=== PATIENT | male | born 1955 | race Caucasian/White ===

== ENCOUNTER 2016-07-18 09:15 | Inpatient (IN) | payer MEDICARE, MEDICAID ==
[2016-07-18] MEDS: NS 0.9% 1000 ML* 2,000 ML IV ONE (10:45)
--- NOTE | 2016-07-18 11:01 | RAD ---
INDICATION: Weakness. COMPARISON: Comparison is made with prior chest x-ray studies from June 24, 2014 and July 08, 2015. TECHNIQUE: A portable view of the chest was obtained. FINDINGS: Cardiac and mediastinal contours appear to be within normal limits. The lungs are underinflated. There are small filtrates at both lung bases and a small right upper lobe infiltrate. No pleural effusion is seen. IMPRESSION: SMALL BILATERAL INFILTRATES.
--- NOTE | 2016-07-18 11:02 | RAD ---
INDICATION: Right lower leg injury. TECHNIQUE: 2 views of the right lower leg were obtained. FINDINGS: The bones are normal alignment. No fracture is seen. IMPRESSION: NO EVIDENCE OF FRACTURE.
[2016-07-18 11:03] LABS: Hematocrit 40 % (42-52); Hemoglobin 13.2 g/dl (14.0-18.0); Mean Corpuscular HGB Conc 33 g/dl (31-36); Mean Corpuscular Hemoglobin 32 pg (27-31); Mean Corpuscular Volume 98 fL (80-94); Mean Platelet Volume 9 um3 (7.4-10.4); Red Blood Count 4.08 10^6/ul (4.0-5.4); Red Cell Distribution Width 13 % (10.5-15); White Blood Count 12.4 10^3/ul (3.5-10.8)
[2016-07-18 11:18] LABS: Troponin I 0.03 ng/mL (<0.04)
[2016-07-18 11:19] LABS: Albumin 3.2 g/dL (3.2-5.2); BUN/Creatinine Ratio 21.4 (8-20); C Reactive Protein 19.54 mg/L (< 5.00); Calcium 8.5 mg/dL (8.6-10.3); EGFR African American 95.1 (>60); EGFR Non-African American 73.9 (>60); Globulin 3.6 g/dL (2-4); Magnesium 1.9 mg/dL (1.9-2.7); Potassium 3.9 mmol/L (3.5-5.0); Total Bilirubin 0.6 mg/dL (0.2-1.0); Total Protein 6.8 g/dL (6.4-8.9)
[2016-07-18 11:36] LABS: TSH (Thyroid Stimulating Horm) 1.77 mcIU/mL (0.34-5.60)
[2016-07-18] MEDS ORDERED: Iohexol 300* (CONTRAST) 10 ML SDV IV ONE (11:40)
--- NOTE | 2016-07-18 12:46 | RAD ---
HISTORY: Trauma COMPARISONS: July 21, 2015 TECHNIQUE: Multiple contiguous axial CT scans were obtained of the head without intravenous contrast. FINDINGS: HEMORRHAGE/INFARCT: There is no hemorrhage or acute infarct. MASSES/SHIFT: There is no mass or shift. EXTRA-AXIAL SPACES: There are no extra-axial fluid collections. SULCI AND VENTRICLES: The sulci and ventricles are normal in size and position for the patient's stated age. CEREBRUM: There are no focal parenchymal abnormalities. BRAINSTEM: There are no focal parenchymal abnormalities. CEREBELLUM: There are no focal parenchymal abnormalities. VESSELS: The vessels are grossly normal. PARANASAL SINUSES: There is mucosal thickening of ethmoid air cells and sphenoid sinus. The sphenoid sinus is hypoplastic. ORBITS: The orbits are unremarkable. BONES AND SOFT TISSUE: No bone or soft tissue abnormalities are noted. OTHER: None IMPRESSION: NO ACUTE INTRACRANIAL PATHOLOGY.
--- NOTE | 2016-07-18 12:53 | RAD ---
HISTORY: Trauma, history of Down syndrome right foot and arm pain COMPARISONS: None TECHNIQUE: Multiple contiguous axial CT scans were obtained of the cervical spine without intravenous contrast, with coronal and sagittal multiplanar reformations. FINDINGS: BRAIN: The visualized brain is unremarkable CENTRAL CANAL: Evaluation of the central canal is limited on CT technique; however, there is no obvious canalicular mass or epidural hemorrhage. ALIGNMENT: There is a scoliotic curvature of the spine. There is grade 1 anterolisthesis of C6 on C7 and C5 on C6. VERTEBRAL BODIES: There is multilevel anterolateral marginal osteophyte formation. There is no displaced fracture or dislocation. JOINTS: There is fusion across C3-C4 MUSCULATURE: Unremarkable INTERVERTEBRAL DISCS: There is diffuse loss of intervertebral disc height. There is partial fusion across C2-C3. There is fusion across C3-C4. AXIAL IMAGES: C2-C3: There is no osseous neural foraminal narrowing or central canal stenosis. C3-C4: There is bilateral uncovertebral facet hypertrophy with moderate bilateral neural foraminal narrowing. C4-C5: There is no osseous neural foraminal narrowing or central canal stenosis. C5-C6: There is no osseous neural foraminal narrowing or central canal stenosis. C6-C7: There is bilateral facet hypertrophy. There is severe right neural foraminal narrowing. There is no osseous central canal stenosis C7-T1: There is no osseous neural foraminal narrowing or central canal stenosis. SOFT TISSUES: The visualized soft tissues of the neck are unremarkable. The prevertebral fat stripe is preserved. OTHER: None. IMPRESSION: 1. DEGENERATIVE DISC DISEASE AND OSTEOARTHRITIS. 2. THERE IS MULTILEVEL NEURAL FORAMINAL NARROWING DESCRIBED ABOVE. 3. THERE IS NO OSSEOUS CENTRAL CANAL STENOSIS
--- NOTE | 2016-07-18 12:58 | RAD ---
INDICATION: Abdominal pain and weakness. COMPARISON: There are no prior studies available for comparison. TECHNIQUE: A CT scan of the abdomen and pelvis was performed with intravenous and without oral contrast following intravenous injection of 85 ml of Omnipaque 300 nonionic contrast. Contiguous axial sections were obtained from the lung bases through the symphysis pubis. Images were reconstructed in the coronal and sagittal planes. The exam is limited due to motion artifact. FINDINGS: There are small patchy infiltrates present at both lung bases involving the left upper lobe and both lower lobes. No pleural effusion is present. The liver and spleen are normal in size without focal abnormality. No calcified gallstones are seen. No intra or extra hepatic ductal distention is present. Evaluation of the pancreas is limited due to motion artifact. No focal abnormality is seen. The kidneys and adrenal glands are normal in size. No hydronephrosis is seen. There is a 4.2 cm simple cyst arising from the lower pole of the left kidney. There is diffuse thickening of the wall of the urinary bladder. The prostate gland does not appear enlarged. The aorta is normal in caliber and demonstrates homogeneous contrast opacification. No significant enlarged retroperitoneal lymph nodes are seen. The stomach, small and large bowel appear nondistended. The appendix is not visualized. There is no evidence for colitis or diverticulitis. No free intraperitoneal air or fluid is seen. No significant focal osseous abnormality is seen. IMPRESSION: 1. LIMITED STUDY DUE TO MOTION ARTIFACT. 2. BIBASILAR INFILTRATES SUSPICIOUS FOR PNEUMONIA. 3. DIFFUSE THICKENING OF THE WALL OF THE URINARY BLADDER SUGGESTING THE POSSIBILITY OF CYSTITIS. RECOMMEND CLINICAL CORRELATION.
[2016-07-18] MEDS ORDERED: cefTRIAXone(*) 1 GM in NS 0.9% 50 ML* 50 ML IVPB ONE (13:39)
[2016-07-18] MEDS ORDERED: NS 0.9% 1000 ML* 2,000 ML IV ONE (13:39)
[2016-07-18] MEDS ORDERED: Azithromycin IV(*) 500 MG in NS 0.9% 250 ML* 250 ML IVPB ONE (13:40)
[2016-07-18 14:25] LABS: Urine Bilirubin Negative (Negative); Urine Glucose Negative (Negative); Urine Nitrite Negative (Negative)
[2016-07-18] MEDS ORDERED: Albuterol HFA INHALER* 8 gm MDI INH PRN (14:56)
[2016-07-18] MEDS ORDERED: Ibuprofen TAB* 400 MG PO PRN (14:56)
[2016-07-18] MEDS: NS 0.9% 1000 ML* 1,000 ML IV SCH (16:58)
[2016-07-18] MEDS: Heparin VIAL(*) 5000 UNITS/ML VIAL (FIVE THOUSAND) SUBCUT SCH (21:51)
--- NOTE | 2016-07-18 23:15 | HP ---
HISTORY AND PHYSICAL: DATE OF ADMISSION: 07/18/16 PRIMARY CARE PROVIDER: Unknown at this time. CHIEF COMPLAINT: "He is falling a lot." HISTORY OF PRESENT ILLNESS: The patient is a poor historian and is alone in the emergency room at this time. So, most of the history is obtained from his chart. Mr. Keenan is a 61-year-old with past medical history of Down syndrome, intellectual disability, depression, mild hearing loss who was diagnosed with influenza as outpatient last week. As per records, he completed his treatment, but continued to have dyspnea and cough and has had unwitnessed falls at [facility] and also complained of weakness. The patient denies pain at this time. PAST MEDICAL HISTORY: 1. Down syndrome. 2. Intellectual disability. 3. Depression. 4. Mild hearing loss. 5. BPH. MEDICATIONS: 1. Acetaminophen 650 mg p.o. q.4 hours p.r.n. pain or fever. 2. Albuterol sulfate 2 puffs inhaled q.4 hours p.r.n. shortness of breath or wheezing. 3. Pepto-Bismol 15 mL p.o. q.4 hours p.r.n. nausea and vomiting. 4. Fluticasone nasal spray 50 mcg 2 sprays to both nares daily. 5. Guaifenesin DM 10 mL p.o. 4 times a day as needed for cough. 6. Ibuprofen 400 mg p.o. q.8 hours p.r.n. pain. 7. Loratadine 10 mg p.o. daily. 8. Meloxicam 7.5 mg p.o. daily with meals as needed for pain. 9. Multivitamin 1 tablet p.o. daily. 10. Natural Dentist Healthy 8 to 10 mL swish and spit b.i.d. 11. PreviDent 5000 plus 1.1% b.i.d. 12. Tamsulosin 0.4 mg p.o. daily. ALLERGIES: No known drug allergies. FAMILY HISTORY: Unable to obtain from the patient. SOCIAL HISTORY: Unable to obtain from the patient, but he resides at [facility] and documented surrogate decision maker is Kayleen Plaza, phone number is [phone]. REVIEW OF SYSTEMS: A 14-point review of systems was performed and all pertinent negative and positives findings are in the HPI. PHYSICAL EXAMINATION GENERAL: The patient is a middle aged male, lying in bed, in no acute distress with characteristic Down faces. VITAL SIGNS: Temperature 98.3, heart rate is 76, respiratory rate is 14, oxygen saturation 96% on room air, blood pressure 127/78. HEENT: Pupils are equal. Moist mucous membranes. CHEST: Breath sounds present bilaterally, coarse, but no added sounds. CVS: Normal S1, S2. Regular rate and rhythm. ABDOMEN: Soft, nontender, nondistended. Bowel sounds are present. EXTREMITIES: No edema. NEUROLOGIC: He is alert and oriented x3. Able to move all 4 extremities. LABORATORY AND IMAGING DATA: The patient had a CBC that showed WBC of 12.4, hemoglobin 13.2, hematocrit of 40, platelets of 138. He has 91% neutrophils. Chemistry showed a sodium of 142, potassium 3.9, chloride of 107, bicarb of 19, anion gap of 16, BUN of 22, creatinine of 1.03, glucose of 130, lactic acid of 1.5, calcium of 8.5, magnesium of 1.9. LFTs are normal. Troponin is 0.03. CRP is 19.5. TSH is 1.7. Urinalysis was negative. EKG done on 07/18/16 at 09:57 showed sinus rhythm at 75 beats per minute with no ST- T changes. No significant change from prior EKG from June 2015. Chest x-ray showed small bilateral infiltrates. CT of the abdomen and pelvis with IV contrast was a limited study due to motion artifact with bibasilar infiltrates suspicious for pneumonia. There is diffuse thickening of the wall of the urinary bladder suggesting the possibility of cystitis. CT of the brain showed no acute intracranial pathology. CT of the cervical spine showed degenerative disk disease and osteoarthritis with multilevel neuroforaminal narrowing, but no osseous central canal stenosis. Left leg x-ray showed no evidence of fracture. ASSESSMENT AND PLAN: Mr. Keenan is a 61-year-old male with past medical history of Down syndrome, depression, intellectual disability, and mild hearing loss who was recently diagnosed with flu as outpatient and completed with treatment, but now presents with complaints of shortness of breath and weakness and found to have pneumonia. 1. Pneumonia. We are going to check blood cultures, Legionella and pneumococcal antigen. The patient was already started on ceftriaxone and Zithromax. 2. Deconditioning. We are going to request PT and OT consultations. 3. Benign prostatic hypertrophy. We will continue tamsulosin. 4. DVT prophylaxis . The patient has a score of 2 on the DVT Prophylaxis Risk Assessment Guide and he will be started on subcutaneous heparin. 5. Code status is full. TIME SPENT: Approximately 40 minutes were spent with the patient interview, medical records review, physical examination to complete this admission, and more than half of this time was spent [id number] with the patient in coordination of care. [id number]/[facility] #: [id number] FLO
[2016-07-18] MEDS: Acetaminophen TAB* 325 MG PO PRN (23:53)
[2016-07-19] MEDS: NS 0.9% 1000 ML* 1,000 ML IV SCH ×2 (03:02→14:15)
[2016-07-19] MEDS: GuaiFENesin DM* 5 ML UDC PO PRN (04:10)
[2016-07-19] MEDS: Heparin VIAL(*) 5000 UNITS/ML VIAL (FIVE THOUSAND) SUBCUT SCH ×3 (06:00→21:00)
[2016-07-19 07:21] LABS: Hematocrit 37 % (42-52); Hemoglobin 12.3 g/dl (14.0-18.0); Mean Corpuscular HGB Conc 33 g/dl (31-36); Mean Corpuscular Hemoglobin 32 pg (27-31); Mean Corpuscular Volume 98 fL (80-94); Mean Platelet Volume 9 um3 (7.4-10.4); Red Cell Distribution Width 14 % (10.5-15); White Blood Count 13.1 10^3/ul (3.5-10.8)
[2016-07-19 07:43] LABS: C Reactive Protein 102.84 mg/L (< 5.00); EGFR Non-African American 103.4 (>60); Potassium 3.3 mmol/L (3.5-5.0)
[2016-07-19] MEDS: Oseltamivir CAP* 75 MG PO SCH ×2 (08:40→20:55)
[2016-07-19] MEDS: Tamsulosin CAP* 0.4 MG PO SCH (08:41)
[2016-07-19] MEDS: Fluticasone NASAL SPRAY 50MCG* 16 gm SPRAY BTL BOTH NARES SCH (08:41)
[2016-07-19] MEDS: Prenatal Vitamin TAB PO SCH (08:41)
--- NOTE | 2016-07-19 10:56 | PN ---
Subjective Date of Service: 07/19/16 Interval History: HOSPITALIST PROGRESS NOTE Patient seen and examined at bedside. He offers no complaints at this time. Family History: Unchanged from Admission Social History: Unchanged from Admission Past Medical History: Unchanged from Admission Objective Active Medications: Acetaminophen (Tylenol Tab*) 650 mg PO Q4H PRN PRN Reason: FEVER/PAIN Last Admin: 07/18/16 23:53 Dose: 650 mg Albuterol (Ventolin Hfa Inhaler*) 2 puff INH Q4HR PRN PRN Reason: Cough/Wheezing/Dyspnea Fluticasone Propionate (Flonase Nasal [place] 50mcg*) 2 spray BOTH NARES DAILY [facility] Last Admin: 07/19/16 08:41 Dose: 2 spray Guaifenesin/Dextromethorphan (Robitussin Dm*) 10 ml PO QID PRN PRN Reason: COUGH Last Admin: 07/19/16 04:10 Dose: 10 ml Heparin Sodium (Porcine) (Heparin Vial(*)) 5,000 units SUBCUT Q8HR [facility] Last Admin: 07/19/16 06:00 Dose: 5,000 units Ceftriaxone Sodium 1,000 mg/ (Sodium Chloride) 50 mls @ 200 mls/hr IVPB Q24H [facility] Azithromycin 500 mg/ Sodium (Chloride) 250 mls @ 250 mls/hr IVPB Q24H [facility] Sodium Chloride (Ns 0.9% 1000 Ml*) 1,000 mls @ 100 mls/hr IV PER RATE [facility] Last Admin: 07/19/16 03:02 Dose: 100 mls/hr Ibuprofen (Motrin Tab*) 400 mg PO Q8H PRN PRN Reason: PAIN/INFLAMMATION Multivitamins ( Vitamin Tab*) 1 tab PO DAILY [facility] Last Admin: 07/19/16 08:41 Dose: 1 tab Oseltamivir Phosphate (Tamiflu Cap*) 75 mg PO BID [facility]OIE Stop: 07/23/16 21:01 Last Admin: 07/19/16 08:40 Dose: 75 mg Potassium Chloride (Klor Con Er Tab*) 20 meq PO BID [facility] Tamsulosin HCl (Flomax Cap*) 0.4 mg PO DAILY [facility] Last Admin: 07/19/16 08:41 Dose: 0.4 mg Vital Signs 07/18/16 07/18/16 07/18/16 14:35 15:17 19:05 Temperature 98.6 F 99.0 F Pulse Rate 90 68 Respiratory 20 20 20 Rate Blood Pressure 126/69 122/66 (mmHg) O2 Sat by Pulse 96 93 Oximetry 07/18/16 07/19/16 20:00 03:59 Temperature 98.5 F Pulse Rate 66 Respiratory 16 19 Rate Blood Pressure 120/61 (mmHg) O2 Sat by Pulse 96 Oximetry Oxygen Devices in Use Now: None Appearance: Middle aged male sitting up in bed in NAD. Eyes: No Scleral Icterus Ears/Nose/Mouth/Throat: Mucous Membranes Moist Neck: Trachea Midline Respiratory: Symmetrical Chest Expansion and Respiratory Effort, - - BS+ bilaterally with scattered rhonchi Cardiovascular: RRR - Normal S1 and S2 Abdominal: NL Sounds; No Tenderness; No Distention Neurological: - - AAOx2 (self and place), HARDING Lines/Tubes/Other Access: Clean, Dry and Intact Peripheral IV Nutrition: Taking PO's Result Diagrams: 07/19/16 06:26 07/19/16 06:26 Assess/Plan/Problems-Billing Assessment: Mr. Keenan is a 61yo M with PMH of Down syndrome, intellectual disability, depression, mild hearing loss, BPH, recent diagnosis of Influenza, who presented to ED with weakness, falls, found to have pneumonia. - Patient Problems (1) Pneumococcal pneumonia Comment: - Pneumococcal Ag positive. - Continue Ceftriaxone and Zithromax. (2) Influenza B Comment: - As per aide, he finished treatment last week, but still testing positive. - Resume Tamiflu. - Will d/w ID. (3) DVT prophylaxis Comment: - SQ heparin. (4) Full code status Status and Disposition: Inpatient.
[2016-07-19] MEDS: Potassium Chlor TAB* 20 MEQ TAB.ER PO SCH ×2 (11:15→20:55)
[2016-07-19] MEDS: cefTRIAXone VIAL(*) 1,000 MG in NS 0.9% 50 ML* 50 ML IVPB SCH (13:31)
[2016-07-19] MEDS: Azithromycin IV(*) 500 MG in NS 0.9% 250 ML* 250 ML IVPB SCH (15:17)
[2016-07-19] MEDS: Acetaminophen TAB* 325 MG PO PRN (21:11)
[2016-07-20] MEDS: NS 0.9% 1000 ML* 1,000 ML IV SCH ×2 (01:05→18:19)
[2016-07-20] MEDS: Heparin VIAL(*) 5000 UNITS/ML VIAL (FIVE THOUSAND) SUBCUT SCH ×3 (06:34→22:43)
[2016-07-20] MEDS: Potassium Chlor TAB* 20 MEQ TAB.ER PO SCH ×2 (10:31→20:28)
[2016-07-20] MEDS: Prenatal Vitamin TAB PO SCH (10:31)
[2016-07-20] MEDS: Tamsulosin CAP* 0.4 MG PO SCH (10:31)
[2016-07-20] MEDS: Oseltamivir CAP* 75 MG PO SCH ×2 (10:32→20:28)
[2016-07-20] MEDS: Fluticasone NASAL SPRAY 50MCG* 16 gm SPRAY BTL BOTH NARES SCH (10:32)
--- NOTE | 2016-07-20 10:33 | PN ---
Subjective Date of Service: 07/20/16 Interval History: HOSPITALIST PROGRESS NOTE Patient seen and examined at bedside. He offers no complaints at this time. Frequent coughing during my examination. Family History: Unchanged from Admission Social History: Unchanged from Admission Past Medical History: Unchanged from Admission Objective Active Medications: Acetaminophen (Tylenol Tab*) 650 mg PO Q4H PRN PRN Reason: FEVER/PAIN Last Admin: 07/19/16 21:11 Dose: 650 mg Albuterol (Ventolin Hfa Inhaler*) 2 puff INH Q4HR PRN PRN Reason: Cough/Wheezing/Dyspnea Fluticasone Propionate (Flonase Nasal [place] 50mcg*) 2 spray BOTH NARES DAILY [facility] Last Admin: 07/19/16 08:41 Dose: 2 spray Guaifenesin/Dextromethorphan (Robitussin Dm*) 10 ml PO QID PRN PRN Reason: COUGH Last Admin: 07/19/16 04:10 Dose: 10 ml Heparin Sodium (Porcine) (Heparin Vial(*)) 5,000 units SUBCUT Q8HR [facility] Last Admin: 07/20/16 06:34 Dose: 5,000 units Ceftriaxone Sodium 1,000 mg/ (Sodium Chloride) 50 mls @ 200 mls/hr IVPB Q24H [facility] Last Admin: 07/19/16 13:31 Dose: 200 mls/hr Azithromycin 500 mg/ Sodium (Chloride) 250 mls @ 250 mls/hr IVPB Q24H [facility] Last Admin: 07/19/16 15:17 Dose: 250 mls/hr Sodium Chloride (Ns 0.9% 1000 Ml*) 1,000 mls @ 100 mls/hr IV PER RATE [facility] Last Admin: 07/20/16 01:05 Dose: 100 mls/hr Ibuprofen (Motrin Tab*) 400 mg PO Q8H PRN PRN Reason: PAIN/INFLAMMATION Multivitamins ( Vitamin Tab*) 1 tab PO DAILY [facility] Last Admin: 07/19/16 08:41 Dose: 1 tab Oseltamivir Phosphate (Tamiflu Cap*) 75 mg PO BID [facility] Stop: 07/23/16 21:01 Last Admin: 07/19/16 20:55 Dose: 75 mg Potassium Chloride (Klor Con Er Tab*) 20 meq PO BID [facility] Last Admin: 07/19/16 20:55 Dose: 20 meq Tamsulosin HCl (Flomax Cap*) 0.4 mg PO DAILY [facility] Last Admin: 07/19/16 08:41 Dose: 0.4 mg Vital Signs 07/19/16 07/20/16 07/20/16 23:39 07:10 08:00 Temperature 99.8 F 99.2 F Pulse Rate 61 66 Respiratory 16 22 22 Rate Blood Pressure 110/55 126/71 (mmHg) O2 Sat by Pulse 94 92 Oximetry 07/20/16 08:44 Temperature 100.1 F Pulse Rate 62 Respiratory Rate Blood Pressure 118/68 (mmHg) O2 Sat by Pulse Oximetry Oxygen Devices in Use Now: None Appearance: Pleasant middle aged male sitting up in bed in NAD. Eyes: No Scleral Icterus Ears/Nose/Mouth/Throat: Mucous Membranes Moist Neck: Trachea Midline Respiratory: Symmetrical Chest Expansion and Respiratory Effort, - - BS+ bilaterally with scattered rhonchi Cardiovascular: RRR - Normal S1 and S2 Abdominal: NL Sounds; No Tenderness; No Distention Extremities: No Edema Neurological: - - AAOx2 (self and place), HARDING Lines/Tubes/Other Access: Clean, Dry and Intact Peripheral IV Nutrition: Taking PO's Result Diagrams: 07/19/16 06:26 07/19/16 06:26 Assess/Plan/Problems-Billing Assessment: Mr. Keenan is a 61yo M with PMH of Down syndrome, intellectual disability, depression, mild hearing loss, BPH, recent diagnosis of Influenza, who presented to ED with weakness, falls, found to have pneumonia. - Patient Problems (1) Pneumococcal pneumonia Comment: - Pneumococcal Ag positive. - Continue Ceftriaxone and Zithromax. (2) Influenza B Comment: - As per aide, he finished treatment last week, but still testing positive. - Resume Tamiflu. - d/w ID - this may represent only virus since this is a PCR test, but as patient lives at [facility] with other residents, will continue Tamiflu. (3) DVT prophylaxis Comment: - SQ heparin. (4) Full code status Status and Disposition: Inpatient.
[2016-07-20] MEDS: cefTRIAXone VIAL(*) 1,000 MG in NS 0.9% 50 ML* 50 ML IVPB SCH (14:17)
[2016-07-20] MEDS: Azithromycin IV(*) 500 MG in NS 0.9% 250 ML* 250 ML IVPB SCH (15:29)
[2016-07-20] MEDS: GuaiFENesin DM* 5 ML UDC PO PRN (20:28)
[2016-07-20] MEDS: Acetaminophen TAB* 325 MG PO PRN (20:29)
--- NOTE | 2016-07-21 01:01 | ED ---
Jamison Goldstein Matthew, scribed for Anurag Grove MD on 07/18/16 at 1007 . Adult Trauma - HPI Summary HPI Summary: A 61 y/o male presents to the ED after a mechanical fall at 05:30 this morning. Associated symptoms include right foot pain, and head trauma. According to the staff member presenting with the patient, he was also grabbing his abdomen this morning. The patient has a Hx of downs syndrome and is a resident of [facility]. A staff member states that he almost fell down the stairs again this morning before being caught by the staff. They are worried about his increased frequency of falls. The patient was recently Dx with influenza and just finished his medication. A complete PHI is limited, because of the patient's Hx of down syndrome. - History of Current Complaint Chief Complaint: EDGeneral Stated Complaint: SOB Time Seen by Provider: 07/18/16 09:43 Hx Obtained From: Patient, Family/Part Time Receptionist Mechanism of Injury: Fall Ambulatory at the Scene: Yes Loss of Consciousness: unsure Onset/Duration: Traumatic, Still Present Onset of Pain: Immediate Onset Severity: Mild Current Severity: Mild Pain Intensity: 3 Pain Scale Used: 0-10 Numeric Location: Head, Extremities - RT Foot Associated Signs & Symptoms: Positive: Abdominal Pain - Allergy/Home Medications Allergies/Adverse Reactions: Allergies Allergy/AdvReac Type Severity Reaction Status Date / Time No Known Drug Allergy Allergy Unknown Verified 07/18/16 15:18 Reaction Details environmental Allergy Eyes Uncoded 05/15/15 12:23 Itchy/Swollen/Red/Watery Home Medications: Home Medications Acetaminophen TAB* [Tylenol TAB*] 650 mg PO Q4H PRN 07/18/16 [History Confirmed 07/18/16] Albuterol Sulfate [Proair Respiclick] 2 puff INH Q4HR PRN 07/18/16 [History Confirmed 07/18/16] Bismuth Subsalicylate [Pepto-Bismol Max Strength] 15 ml PO Q4HR PRN 07/18/16 [ History Confirmed 07/18/16] Fluticasone NASAL SPRAY 50MCG* [Flonase NASAL SPRAY 50MCG*] 2 spray BOTH NARES DAILY 07/18/16 [History Confirmed 07/18/16] GuaiFENesin DM* [Robitussin DM*] 10 ml PO QID PRN 07/18/16 [History Confirmed ] Ibuprofen TAB* [Advil TAB*] 400 mg PO Q8H PRN 07/18/16 [History Confirmed ] LoraTADine TAB(NF) [Claritin 10 MG TAB(NF)] 10 mg PO DAILY 07/18/16 [History Confirmed 07/18/16] Meloxicam(NF) [Mobic(NF)] 7.5 mg PO DAILY WITH MEAL PRN 07/18/16 [History Confirmed 07/18/16] Multiple Vitamin [Daily Multiple Vitamin] 1 tab PO DAILY 07/18/16 [History Confirmed 07/18/16] Natural Dentist Healthy 10 ml SWISH SPIT BID 07/18/16 [History Confirmed ] Sodium Fluoride (Dental) [Prevident 5000 Plus] 1.1 % PO BID 07/18/16 [History Confirmed 07/18/16] Tamsulosin CAP* [Flomax CAP*] 0.4 mg PO DAILY 07/18/16 [History Confirmed ] PMH/Surg Hx/FS Hx/Imm Hx Endocrine/Hematology History: Denies: Hx Diabetes, Hx Thyroid Disease Cardiovascular History: Denies: Hx Hypertension Respiratory History: Denies: Hx Asthma, Hx Chronic Obstructive Pulmonary Disease (COPD) GI History: Denies: Hx Ulcer Psychiatric History: Reports: Hx Depression Infectious Disease History: No Infectious Disease History: Denies: Hx Hepatitis, Hx Human Immunodeficiency Virus (HIV), Traveled Outside the [place] in Last 30 Days - Family History Known Family History: Positive: Unknown - The patient is a poor historian due to down syndrome - Social History Alcohol Use: None Substance Use Type: Reports: None Smoking Status (MU): Never Smoked Tobacco Review of Systems Positive: Abdominal Pain Positive: Myalgia - RT Foot Pain All Other Systems Reviewed And Are Negative: No - Comments Additional Review of Systems Comments: A complete ROS is unable to be obtained as the patient is a poor history from his Hx of down syndrome. Physical Exam Triage Information Reviewed: Yes Vital Signs On Initial Exam: Initial Vitals Temp Pulse Resp BP Pulse Ox 98.3 F 77 16 103/75 97 07/18/16 09:31 07/18/16 09:31 07/18/16 09:31 07/18/16 09:31 07/18/16 09:31 Vital Signs Reviewed: Yes Appearance: Positive: Well-Appearing, No Pain Distress Skin: Positive: Warm, Dry Head/Face: Positive: Normal Head/Face Inspection Eyes: Positive: EOMI, SAMIR ENT: Positive: Other - oral mucosa dry Neck: Positive: Supple, Nontender Respiratory/Lung Sounds: Positive: Clear to Auscultation, Breath Sounds Present Cardiovascular: Positive: RRR Abdomen Description: Positive: Soft, Other: - mild tenderness diffusely over the abdomen Bowel Sounds: Positive: Present Musculoskeletal: Positive: Strength/ROM Intact, Other - The patient indicates that his right proximal tib/fib hurt at some time Psychiatric: Positive: Other - Hx of MR - Bruno Coma Scale Coma Scale Total: 15 Diagnostics - Vital Signs Vital Signs Temp Pulse Resp BP Pulse Ox 07/18/16 09:31 98.3 F 77 16 103/75 97 - Laboratory Result Diagrams: 07/18/16 10:39 07/18/16 10:39 Lab Statement: Any lab studies that have been ordered have been reviewed, and results considered in the medical decision making process. - Radiology CXR Xray Interpretation: Positive (See Comments) - IMPRESSION: SMALL BILATERAL INFILTRATES. Radiology Interpretation Completed By: Radiologist LE XR Xray Interpretation: No Acute Changes - IMPRESSION: NO EVIDENCE OF FRACTURE. Radiology Interpretation Completed By: Radiologist - CT Brain CT CT Interpretation: No Acute Changes - IMPRESSION: NO ACUTE INTRACRANIAL PATHOLOGY. CT Interpretation Completed By: Radiologist C-Spine CT CT Interpretation: Positive (See Comments) - IMPRESSION: 1. DEGENERATIVE DISC DISEASE AND OSTEOARTHRITIS. 2. THERE IS MULTILEVEL NEURAL FORAMINAL NARROWING DESCRIBED ABOVE. 3. THERE IS NO OSSEOUS CENTRAL CANAL STENOSIS CT Interpretation Completed By: Radiologist A/P CT CT Interpretation: Positive (See Comments) - IMPRESSION: 1. LIMITED STUDY DUE TO MOTION ARTIFACT. 2. BIBASILAR INFILTRATES SUSPICIOUS FOR PNEUMONIA. 3. DIFFUSE THICKENING OF THE WALL OF THE URINARY BLADDER SUGGESTING THE POSSIBILITY OF CYSTITIS. RECOMMEND CLINICAL CORRELATION. CT Interpretation Completed By: Radiologist - EKG 09:57 Cardiac Rate: NL - 75 bpm EKG Rhythm: Sinus Rhythm Ectopy: None Adult Trauma Course/Dx - Diagnoses Provider Diagnoses: PNEUMONIA Discharge - Discharge Plan Condition: Fair Disposition: ADMITTED TO [facility] [place] documentation as recorded by the Jamison yousif Matthew accurately reflects the service I personally performed and the decisions made by me, Anurag Grove MD.
[2016-07-21] MEDS: NS 0.9% 1000 ML* 1,000 ML IV SCH (03:31)
[2016-07-21] MEDS: Heparin VIAL(*) 5000 UNITS/ML VIAL (FIVE THOUSAND) SUBCUT SCH ×3 (05:38→22:29)
[2016-07-21 05:43] LABS: Hematocrit 33 % (42-52); Hemoglobin 11.2 g/dl (14.0-18.0); Mean Corpuscular HGB Conc 34 g/dl (31-36); Mean Corpuscular Hemoglobin 33 pg (27-31); Mean Corpuscular Volume 96 fL (80-94); Mean Platelet Volume 9 um3 (7.4-10.4); Red Blood Count 3.43 10^6/ul (4.0-5.4); Red Cell Distribution Width 13 % (10.5-15); White Blood Count 6.1 10^3/ul (3.5-10.8)
[2016-07-21 05:54] LABS: BUN/Creatinine Ratio 7.8 (8-20); Calcium 7.9 mg/dL (8.6-10.3); EGFR African American 164.6 (>60); Potassium 3.5 mmol/L (3.5-5.0)
--- NOTE | 2016-07-21 10:37 | PN ---
Subjective Date of Service: 07/21/16 Interval History: HOSPITALIST PROGRESS NOTE Patient seen and examined at bedside. Offers no complaints. Family History: Unchanged from Admission Social History: Unchanged from Admission Past Medical History: Unchanged from Admission Objective Active Medications: Acetaminophen (Tylenol Tab*) 650 mg PO Q4H PRN PRN Reason: FEVER/PAIN Last Admin: 07/20/16 20:29 Dose: 650 mg Albuterol (Ventolin Hfa Inhaler*) 2 puff INH Q4HR PRN PRN Reason: Cough/Wheezing/Dyspnea Fluticasone Propionate (Flonase Nasal [place] 50mcg*) 2 spray BOTH NARES DAILY COUNT INCLUDES [facility] Last Admin: 07/20/16 10:32 Dose: 2 spray Guaifenesin/Dextromethorphan (Robitussin Dm*) 10 ml PO QID PRN PRN Reason: COUGH Last Admin: 07/20/16 20:28 Dose: 10 ml Heparin Sodium (Porcine) (Heparin Vial(*)) 5,000 units SUBCUT Q8HR COUNT INCLUDES [facility] Last Admin: 07/21/16 05:38 Dose: 5,000 units Ceftriaxone Sodium 1,000 mg/ (Sodium Chloride) 50 mls @ 200 mls/hr IVPB Q24H [facility] Last Admin: 07/20/16 14:17 Dose: 200 mls/hr Azithromycin 500 mg/ Sodium (Chloride) 250 mls @ 250 mls/hr IVPB Q24H [facility] Last Admin: 07/20/16 15:29 Dose: 250 mls/hr Ibuprofen (Motrin Tab*) 400 mg PO Q8H PRN PRN Reason: PAIN/INFLAMMATION Multivitamins ( Vitamin Tab*) 1 tab PO DAILY [facility] INCLUDES [facility] Last Admin: 07/20/16 10:31 Dose: 1 tab Oseltamivir Phosphate (Tamiflu Cap*) 75 mg PO BID COUNT INCLUDES [facility] Stop: 07/23/16 21:01 Last Admin: 07/20/16 20:28 Dose: 75 mg Potassium Chloride (Klor Con Er Tab*) 20 meq PO BID [facility] Last Admin: 07/20/16 20:28 Dose: 20 meq Tamsulosin HCl (Flomax Cap*) 0.4 mg PO DAILY [facility] Last Admin: 07/20/16 10:31 Dose: 0.4 mg Vital Signs 07/21/16 07/21/16 08:13 08:28 Temperature 98.5 F Pulse Rate 56 Respiratory 16 Rate Blood Pressure 115/72 (mmHg) O2 Sat by Pulse 97 Oximetry Oxygen Devices in Use Now: None Appearance: Pleasant gentleman lying in bed in NAD. Eyes: No Scleral Icterus Ears/Nose/Mouth/Throat: Mucous Membranes Moist Neck: Trachea Midline Respiratory: Symmetrical Chest Expansion and Respiratory Effort, Clear to Auscultation Cardiovascular: RRR - Normal S1 and S2 Abdominal: NL Sounds; No Tenderness; No Distention Extremities: No Edema Neurological: - - AAOx2 (self and place), HARDING Lines/Tubes/Other Access: Clean, Dry and Intact Peripheral IV Nutrition: Taking PO's Result Diagrams: 07/21/16 05:27 07/21/16 05:27 Assess/Plan/Problems-Billing Assessment: Mr. Keenan is a 61yo M with PMH of Down syndrome, intellectual disability, depression, mild hearing loss, BPH, recent diagnosis of Influenza, who presented to ED with weakness, falls, found to have pneumonia. - Patient Problems (1) Pneumococcal pneumonia Comment: - Pneumococcal Ag positive. - Continue Ceftriaxone and Zithromax. (2) Influenza B Comment: - As per aide, he finished treatment last week, but still testing positive. - Resume Tamiflu. - d/w ID - this may represent only virus since this is a PCR test, but as patient lives at [facility] with other residents, will continue Tamiflu. (3) DVT prophylaxis Comment: - SQ heparin. (4) Full code status Status and Disposition: Inpatient.
[2016-07-21] MEDS: Oseltamivir CAP* 75 MG PO SCH ×2 (10:39→20:17)
[2016-07-21] MEDS: Tamsulosin CAP* 0.4 MG PO SCH (10:39)
[2016-07-21] MEDS: Prenatal Vitamin TAB PO SCH (10:39)
[2016-07-21] MEDS: Fluticasone NASAL SPRAY 50MCG* 16 gm SPRAY BTL BOTH NARES SCH (10:40)
[2016-07-21] MEDS: Potassium Chlor TAB* 20 MEQ TAB.ER PO SCH ×2 (10:40→20:17)
[2016-07-21] MEDS: cefTRIAXone VIAL(*) 1,000 MG in NS 0.9% 50 ML* 50 ML IVPB SCH (14:42)
[2016-07-21] MEDS: Azithromycin IV(*) 500 MG in NS 0.9% 250 ML* 250 ML IVPB SCH (16:23)
[2016-07-21] MEDS: GuaiFENesin DM* 5 ML UDC PO PRN (20:16)
[2016-07-21] MEDS: Acetaminophen TAB* 325 MG PO PRN (20:17)
[2016-07-22] MEDS: Heparin VIAL(*) 5000 UNITS/ML VIAL (FIVE THOUSAND) SUBCUT SCH ×3 (05:47→22:02)
[2016-07-22] MEDS: GuaiFENesin DM* 5 ML UDC PO PRN ×2 (09:15→17:14)
[2016-07-22] MEDS: Tamsulosin CAP* 0.4 MG PO SCH (09:16)
[2016-07-22] MEDS: Prenatal Vitamin TAB PO SCH (09:16)
[2016-07-22] MEDS: Oseltamivir CAP* 75 MG PO SCH ×2 (09:16→22:02)
[2016-07-22] MEDS: Potassium Chlor TAB* 20 MEQ TAB.ER PO SCH ×2 (09:16→22:02)
[2016-07-22] MEDS: Fluticasone NASAL SPRAY 50MCG* 16 gm SPRAY BTL BOTH NARES SCH (09:16)
[2016-07-22] MEDS: cefTRIAXone VIAL(*) 1,000 MG in NS 0.9% 50 ML* 50 ML IVPB SCH (13:53)
--- NOTE | 2016-07-22 16:12 | PN ---
Subjective Date of Service: 07/22/16 Interval History: Patient offers no c/o. Not clear if he is capable of making his needs known. Family History: Unchanged from Admission Social History: Unchanged from Admission Past Medical History: Unchanged from Admission Objective Active Medications: Acetaminophen (Tylenol Tab*) 650 mg PO Q4H PRN PRN Reason: FEVER/PAIN Last Admin: 07/21/16 20:17 Dose: 650 mg Albuterol (Ventolin Hfa Inhaler*) 2 puff INH Q4HR PRN PRN Reason: Cough/Wheezing/Dyspnea Azithromycin (Zithromax Tab*) 250 mg PO DAILY [facility] Stop: 07/24/16 15:00 Fluticasone Propionate (Flonase Nasal [place] 50mcg*) 2 spray BOTH NARES DAILY [facility] Last Admin: 07/22/16 09:16 Dose: 2 spray Guaifenesin/Dextromethorphan (Robitussin Dm*) 10 ml PO QID PRN PRN Reason: COUGH Last Admin: 07/22/16 09:15 Dose: 10 ml Heparin Sodium (Porcine) (Heparin Vial(*)) 5,000 units SUBCUT Q8HR [facility] Last Admin: 07/22/16 13:53 Dose: 5,000 units Ceftriaxone Sodium 1,000 mg/ (Sodium Chloride) 50 mls @ 200 mls/hr IVPB Q24H [facility] Last Admin: 07/22/16 13:53 Dose: 200 mls/hr Ibuprofen (Motrin Tab*) 400 mg PO Q8H PRN PRN Reason: PAIN/INFLAMMATION Last Admin: 07/22/16 09:23 Dose: 400 mg Multivitamins ( Vitamin Tab*) 1 tab PO DAILY [facility] Last Admin: 07/22/16 09:16 Dose: 1 tab Oseltamivir Phosphate (Tamiflu Cap*) 75 mg PO BID [facility] Stop: 07/23/16 21:01 Last Admin: 07/22/16 09:16 Dose: 75 mg Potassium Chloride (Klor Con Er Tab*) 20 meq PO BID [facility] Last Admin: 07/22/16 09:16 Dose: 20 meq Tamsulosin HCl (Flomax Cap*) 0.4 mg PO DAILY [facility] Last Admin: 07/22/16 09:16 Dose: 0.4 mg Vital Signs 07/21/16 07/21/16 07/21/16 19:55 20:00 23:44 Temperature 99.1 F 98.2 F Pulse Rate 57 56 Respiratory 16 16 20 Rate Blood Pressure 132/72 116/73 (mmHg) O2 Sat by Pulse 98 95 Oximetry 07/22/16 07/22/16 08:00 08:09 Temperature 98.3 F Pulse Rate 42 Respiratory 18 16 Rate Blood Pressure 126/57 (mmHg) O2 Sat by Pulse 98 Oximetry Oxygen Devices in Use Now: None Appearance: Alert, walking slowly in his room next to the bed. Neutral affect. Looks comfortable. Eyes: No Scleral Icterus Neck: NL Appearance and Movements; NL JVP, No Thyroid Enlargement, Masses Respiratory: Symmetrical Chest Expansion and Respiratory Effort, Clear to Auscultation, Clear to Percussion Cardiovascular: NL Sounds; No Murmurs; No JVD, RRR, No Edema, - Extremities: No Edema, No Clubbing, Cyanosis, - Skin: No Rash or Ulcers, No Nodules or Sclerosis, - Neurological: - - Slow gait. Non-verbal. Fair eye contact. No tremor. Result Diagrams: 07/21/16 05:27 07/21/16 05:27 Microbiology and Other Data: Microbiology 07/18/16 22:07 Aerobic Blood Culture - Preliminary Blood Venous No Growth Day 3 Anaerobic Blood Culture - Preliminary No Growth Day 3 Blood Culture - Final 07/18/16 19:58 Aerobic Blood Culture - Preliminary Blood Venous No Growth Day 3 Anaerobic Blood Culture - Preliminary No Growth Day 3 Blood Culture - Final 07/18/16 22:00 Legionella Urinary Antigen - Final Urine Negative Legionella Streptococcus pneumoniae Ag Screen - Final Positive S. Pneumo Antigen 07/18/16 18:00 Influenza Types A,B Antigen (LORI) - Final Nasal Specimen received for Influenza A/B Molecular testing Assess/Plan/Problems-Billing Assessment: Mr. Keenan is a 61yo M with PMH of Down syndrome, intellectual disability, depression, mild hearing loss, BPH, recent diagnosis of Influenza, who presented to ED with weakness, falls, found to have pneumonia. - Patient Problems (1) Influenza B Current Visit: Yes Status: Acute Code(s): J10.1 - FLU DUE TO OTH IDENT INFLUENZA VIRUS W OTH RESP MANIFEST SNOMED Code(s): 64300987 Comment: - As per aide, he finished treatment last week, but still testing positive. - d/w ID - this may represent only virus since this is a PCR test, but as patient lives at [facility] with other residents. Last dose oseltamivir PM 07/23. (2) Pneumococcal pneumonia Current Visit: Yes Status: Acute Code(s): J13 - PNEUMONIA DUE TO STREPTOCOCCUS PNEUMONIAE SNOMED Code(s): 106885560 Comment: - Pneumococcal Ag positive. - Continue Ceftriaxone and Zithromax, later po last dose 07/24. (3) Down syndrome Current Visit: Yes Status: Acute Code(s): Q90.9 - DOWN SYNDROME, UNSPECIFIED SNOMED Code(s): 08203000 Comment: Severe developmental delay. He needs more PT before discharge as he needs to climb 10 stairs to go home. Status and Disposition: Inpatient.
[2016-07-22] MEDS: Azithromycin TAB* 250 MG PO SCH (17:13)
[2016-07-22] MEDS: Azithromycin IV(*) 500 MG in NS 0.9% 250 ML* 250 ML IVPB SCH (17:15)
[2016-07-23] MEDS: Heparin VIAL(*) 5000 UNITS/ML VIAL (FIVE THOUSAND) SUBCUT SCH ×3 (06:25→20:16)
[2016-07-23] MEDS: Oseltamivir CAP* 75 MG PO SCH ×2 (07:44→20:13)
[2016-07-23] MEDS: Prenatal Vitamin TAB PO SCH (07:44)
[2016-07-23] MEDS: Fluticasone NASAL SPRAY 50MCG* 16 gm SPRAY BTL BOTH NARES SCH (07:45)
[2016-07-23] MEDS: Tamsulosin CAP* 0.4 MG PO SCH (07:45)
[2016-07-23] MEDS: Potassium Chlor TAB* 20 MEQ TAB.ER PO SCH ×2 (07:45→20:13)
[2016-07-23] MEDS: cefTRIAXone VIAL(*) 1,000 MG in NS 0.9% 50 ML* 50 ML IVPB SCH (14:10)
--- NOTE | 2016-07-23 14:12 | PN ---
Subjective Date of Service: 07/23/16 Interval History: He offers no c/o. Family History: Unchanged from Admission Social History: Unchanged from Admission Past Medical History: Unchanged from Admission Objective Active Medications: Acetaminophen (Tylenol Tab*) 650 mg PO Q4H PRN PRN Reason: FEVER/PAIN Last Admin: 07/21/16 20:17 Dose: 650 mg Albuterol (Ventolin Hfa Inhaler*) 2 puff INH Q4HR PRN PRN Reason: Cough/Wheezing/Dyspnea Azithromycin (Zithromax Tab*) 250 mg PO 1500 [facility] Stop: 07/24/16 15:01 Last Admin: 07/22/16 17:13 Dose: 250 mg Fluticasone Propionate (Flonase Nasal [place] 50mcg*) 2 spray BOTH NARES DAILY [facility] Last Admin: 07/23/16 07:45 Dose: 2 spray Guaifenesin/Dextromethorphan (Robitussin Dm*) 10 ml PO QID PRN PRN Reason: COUGH Last Admin: 07/22/16 17:14 Dose: 10 ml Heparin Sodium (Porcine) (Heparin Vial(*)) 5,000 units SUBCUT Q8HR [facility] Last Admin: 07/23/16 14:04 Dose: 5,000 units Ceftriaxone Sodium 1,000 mg/ (Sodium Chloride) 50 mls @ 200 mls/hr IVPB Q24H [facility] Last Admin: 07/23/16 14:10 Dose: 200 mls/hr Ibuprofen (Motrin Tab*) 400 mg PO Q8H PRN PRN Reason: PAIN/INFLAMMATION Last Admin: 07/22/16 09:23 Dose: 400 mg Multivitamins ( Vitamin Tab*) 1 tab PO DAILY [facility] Last Admin: 07/23/16 07:44 Dose: 1 tab Oseltamivir Phosphate (Tamiflu Cap*) 75 mg PO BID [facility] Stop: 07/23/16 21:01 Last Admin: 07/23/16 07:44 Dose: 75 mg Potassium Chloride (Klor Con Er Tab*) 20 meq PO BID [facility] Last Admin: 07/23/16 07:45 Dose: 20 meq Tamsulosin HCl (Flomax Cap*) 0.4 mg PO DAILY [facility] Last Admin: 07/23/16 07:45 Dose: 0.4 mg Vital Signs 07/22/16 07/22/16 07/22/16 15:26 22:36 23:29 Temperature 98.1 F 98.7 F Pulse Rate 50 48 Respiratory 16 18 18 Rate Blood Pressure 103/70 127/72 (mmHg) O2 Sat by Pulse 97 100 Oximetry 07/23/16 07/23/16 08:00 08:45 Temperature 98.6 F Pulse Rate 50 Respiratory 18 18 Rate Blood Pressure 114/76 (mmHg) O2 Sat by Pulse 90 Oximetry Oxygen Devices in Use Now: None Appearance: Alert, standing next to his bed. Neutral affect. Looks comfortable. Eyes: No Scleral Icterus Respiratory: Symmetrical Chest Expansion and Respiratory Effort, Clear to Auscultation, Clear to Percussion Cardiovascular: RRR, No Edema, - - 1-2/6 sytolic murmur across precordium Extremities: No Edema, No Clubbing, Cyanosis, - Skin: No Rash or Ulcers, No Nodules or Sclerosis, - Neurological: NL Sensation - Bent over a little. Cooperative, follows simple commands. No tremor. Non-verbal. Result Diagrams: 07/21/16 05:27 07/21/16 05:27 Microbiology and Other Data: Microbiology 07/18/16 22:07 Aerobic Blood Culture - Preliminary Blood Venous No Growth Day 3 Anaerobic Blood Culture - Preliminary No Growth Day 3 Blood Culture - Final 07/18/16 19:58 Aerobic Blood Culture - Preliminary Blood Venous No Growth Day 3 Anaerobic Blood Culture - Preliminary No Growth Day 3 Blood Culture - Final 07/18/16 22:00 Legionella Urinary Antigen - Final Urine Negative Legionella Streptococcus pneumoniae Ag Screen - Final Positive S. Pneumo Antigen 07/18/16 18:00 Influenza Types A,B Antigen (LORI) - Final Nasal Specimen received for Influenza A/B Molecular testing Assess/Plan/Problems-Billing Assessment: Mr. Keenan is a 61yo M with PMH of Down syndrome, intellectual disability, depression, mild hearing loss, BPH, recent diagnosis of Influenza, who presented to ED with weakness, falls, found to have pneumonia. - Patient Problems (1) Influenza B Current Visit: Yes Status: Acute Code(s): J10.1 - FLU DUE TO OTH IDENT INFLUENZA VIRUS W OTH RESP MANIFEST SNOMED Code(s): 47732519 Comment: - As per aide, he finished treatment last week, but still testing positive. - d/w ID - this may represent only virus since this is a PCR test, but as patient lives at [facility] with other residents. Last dose oseltamivir PM 07/23. (2) Pneumococcal pneumonia Current Visit: Yes Status: Acute Code(s): J13 - PNEUMONIA DUE TO STREPTOCOCCUS PNEUMONIAE SNOMED Code(s): 720356405 Comment: - Pneumococcal Ag positive. - Continue Ceftriaxone and Zithromax, latter po with last dose 07/24. (3) Down syndrome Current Visit: Yes Status: Acute Code(s): Q90.9 - DOWN SYNDROME, UNSPECIFIED SNOMED Code(s): 81420958 Comment: Severe developmental delay. He needs more PT before discharge as he needs to climb 10 stairs to go home. Status and Disposition: Inpatient.
[2016-07-23] MEDS: Azithromycin TAB* 250 MG PO SCH (14:57)
[2016-07-24] MEDS: Heparin VIAL(*) 5000 UNITS/ML VIAL (FIVE THOUSAND) SUBCUT SCH ×3 (05:41→21:29)
[2016-07-24] MEDS: Potassium Chlor TAB* 20 MEQ TAB.ER PO SCH ×2 (10:00→21:28)
[2016-07-24] MEDS: Tamsulosin CAP* 0.4 MG PO SCH (10:00)
[2016-07-24] MEDS: Prenatal Vitamin TAB PO SCH (10:00)
[2016-07-24] MEDS: Fluticasone NASAL SPRAY 50MCG* 16 gm SPRAY BTL BOTH NARES SCH (10:00)
--- NOTE | 2016-07-24 13:05 | PN ---
Subjective Date of Service: 07/24/16 Interval History: No c/o. Family History: Unchanged from Admission Social History: Unchanged from Admission Past Medical History: Unchanged from Admission Objective Active Medications: Acetaminophen (Tylenol Tab*) 650 mg PO Q4H PRN PRN Reason: FEVER/PAIN Last Admin: 07/21/16 20:17 Dose: 650 mg Albuterol (Ventolin Hfa Inhaler*) 2 puff INH Q4HR PRN PRN Reason: Cough/Wheezing/Dyspnea Azithromycin (Zithromax Tab*) 250 mg PO 1500 [facility] Stop: 07/24/16 15:01 Last Admin: 07/23/16 14:57 Dose: 250 mg Fluticasone Propionate (Flonase Nasal [place] 50mcg*) 2 spray BOTH NARES DAILY [facility] Last Admin: 07/24/16 10:00 Dose: 2 spray Guaifenesin/Dextromethorphan (Robitussin Dm*) 10 ml PO QID PRN PRN Reason: COUGH Last Admin: 07/22/16 17:14 Dose: 10 ml Heparin Sodium (Porcine) (Heparin Vial(*)) 5,000 units SUBCUT Q8HR [facility] Last Admin: 07/24/16 05:41 Dose: 5,000 units Ceftriaxone Sodium 1,000 mg/ (Sodium Chloride) 50 mls @ 200 mls/hr IVPB Q24H [facility] Last Admin: 07/23/16 14:10 Dose: 200 mls/hr Ibuprofen (Motrin Tab*) 400 mg PO Q8H PRN PRN Reason: PAIN/INFLAMMATION Last Admin: 07/22/16 09:23 Dose: 400 mg Multivitamins ( Vitamin Tab*) 1 tab PO DAILY [facility] Last Admin: 07/24/16 10:00 Dose: 1 tab Potassium Chloride (Klor Con Er Tab*) 20 meq PO BID [facility] Last Admin: 07/24/16 10:00 Dose: 20 meq Tamsulosin HCl (Flomax Cap*) 0.4 mg PO DAILY [facility] Last Admin: 07/24/16 10:00 Dose: 0.4 mg Vital Signs 07/23/16 07/23/16 07/23/16 16:13 20:00 23:40 Temperature 98.7 F 98.7 F Pulse Rate 51 57 Respiratory 18 18 18 Rate Blood Pressure 115/69 106/47 (mmHg) O2 Sat by Pulse 97 90 Oximetry 07/24/16 07/24/16 07:28 08:00 Temperature 98.1 F Pulse Rate 59 Respiratory 16 16 Rate Blood Pressure 97/52 (mmHg) O2 Sat by Pulse 96 Oximetry Oxygen Devices in Use Now: None Appearance: Alert, sitting up in bed. Cooperative. Neutral affect. Looks comfortable. Eyes: No Scleral Icterus Neck: NL Appearance and Movements; NL JVP, No Thyroid Enlargement, Masses Respiratory: Symmetrical Chest Expansion and Respiratory Effort, Clear to Auscultation, Clear to Percussion, - - Harsh cough with deep inspiration. Neurological: NL Sensation - He can speak dysarthric words, nearly imposisble to understand, when he wants something. Result Diagrams: 07/21/16 05:27 07/21/16 05:27 Microbiology and Other Data: Microbiology 07/18/16 22:07 Aerobic Blood Culture - Preliminary Blood Venous No Growth Day 3 Anaerobic Blood Culture - Preliminary No Growth Day 3 Blood Culture - Final 07/18/16 19:58 Aerobic Blood Culture - Preliminary Blood Venous No Growth Day 3 Anaerobic Blood Culture - Preliminary No Growth Day 3 Blood Culture - Final 07/18/16 22:00 Legionella Urinary Antigen - Final Urine Negative Legionella Streptococcus pneumoniae Ag Screen - Final Positive S. Pneumo Antigen 07/18/16 18:00 Influenza Types A,B Antigen (LORI) - Final Nasal Specimen received for Influenza A/B Molecular testing Assess/Plan/Problems-Billing Assessment: Mr. Keenan is a 61yo M with PMH of Down syndrome, intellectual disability, depression, mild hearing loss, BPH, recent diagnosis of Influenza, who presented to ED with weakness, falls, found to have pneumonia. - Patient Problems (1) Influenza B Current Visit: Yes Status: Acute Code(s): J10.1 - FLU DUE TO OTH IDENT INFLUENZA VIRUS W OTH RESP MANIFEST SNOMED Code(s): 08269727 Comment: - As per aide, he finished treatment last week, but still testing positive. - d/w ID - this may represent only virus since this is a PCR test, but as patient lives at [facility] with other residents. Last dose oseltamivir PM 07/23. (2) Pneumococcal pneumonia Current Visit: Yes Status: Acute Code(s): J13 - PNEUMONIA DUE TO STREPTOCOCCUS PNEUMONIAE SNOMED Code(s): 551851286 Comment: - Pneumococcal Ag positive. - Continue Ceftriaxone and Zithromax, latter po with last dose 07/24. (3) Down syndrome Current Visit: Yes Status: Acute Code(s): Q90.9 - DOWN SYNDROME, UNSPECIFIED SNOMED Code(s): 97165093 Comment: Severe developmental delay. He needs more PT before discharge as he needs to climb 10 stairs to go home. Status and Disposition: Inpatient.
[2016-07-24] MEDS: cefTRIAXone VIAL(*) 1,000 MG in NS 0.9% 50 ML* 50 ML IVPB SCH (14:27)
[2016-07-24] MEDS: Azithromycin TAB* 250 MG PO SCH (14:47)
[2016-07-25] MEDS: Heparin VIAL(*) 5000 UNITS/ML VIAL (FIVE THOUSAND) SUBCUT SCH (05:49)
[2016-07-25 06:01] LABS: Hematocrit 36 % (42-52); Hemoglobin 12.2 g/dl (14.0-18.0); Mean Corpuscular HGB Conc 34 g/dl (31-36); Mean Corpuscular Hemoglobin 33 pg (27-31); Mean Corpuscular Volume 97 fL (80-94); Mean Platelet Volume 8 um3 (7.4-10.4); Red Blood Count 3.74 10^6/ul (4.0-5.4); Red Cell Distribution Width 14 % (10.5-15); White Blood Count 3.9 10^3/ul (3.5-10.8)
[2016-07-25 08:01] VITALS: BP 86/56
--- NOTE | 2016-07-25 09:36 | DCNOTE ---
Subjective Date of Service: 07/25/16 Interval History: Patient offers no c/o. Family History: Unchanged from Admission Social History: Unchanged from Admission Past Medical History: Unchanged from Admission Objective Active Medications: Acetaminophen (Tylenol Tab*) 650 mg PO Q4H PRN PRN Reason: FEVER/PAIN Last Admin: 07/21/16 20:17 Dose: 650 mg Albuterol (Ventolin Hfa Inhaler*) 2 puff INH Q4HR PRN PRN Reason: Cough/Wheezing/Dyspnea Fluticasone Propionate (Flonase Nasal [place] 50mcg*) 2 spray BOTH NARES DAILY [facility] Last Admin: 07/24/16 10:00 Dose: 2 spray Guaifenesin/Dextromethorphan (Robitussin Dm*) 10 ml PO QID PRN PRN Reason: COUGH Last Admin: 07/22/16 17:14 Dose: 10 ml Heparin Sodium (Porcine) (Heparin Vial(*)) 5,000 units SUBCUT Q8HR [facility] Last Admin: 07/25/16 05:49 Dose: 5,000 units Ceftriaxone Sodium 1,000 mg/ (Sodium Chloride) 50 mls @ 200 mls/hr IVPB Q24H [facility] Last Admin: 07/24/16 14:27 Dose: 200 mls/hr Ibuprofen (Motrin Tab*) 400 mg PO Q8H PRN PRN Reason: PAIN/INFLAMMATION Last Admin: 07/22/16 09:23 Dose: 400 mg Multivitamins ( Vitamin Tab*) 1 tab PO DAILY [facility] Last Admin: 07/24/16 10:00 Dose: 1 tab Potassium Chloride (Klor Con Er Tab*) 20 meq PO BID [facility] Last Admin: 07/24/16 21:28 Dose: 20 meq Tamsulosin HCl (Flomax Cap*) 0.4 mg PO DAILY [facility] Last Admin: 07/24/16 10:00 Dose: 0.4 mg Vital Signs 07/24/16 07/24/16 07/24/16 15:11 19:26 23:35 Temperature 98.1 F 98.4 F Pulse Rate 54 56 Respiratory 17 16 18 Rate Blood Pressure 120/71 92/57 (mmHg) O2 Sat by Pulse 98 98 Oximetry 07/25/16 07/25/16 07:34 08:00 Temperature 98.5 F Pulse Rate 54 Respiratory 16 16 Rate Blood Pressure 86/56 (mmHg) O2 Sat by Pulse 97 Oximetry Oxygen Devices in Use Now: None Appearance: Alert, in a chair. In good spirits. Looks comfortable. Neck: NL Appearance and Movements; NL JVP, No Thyroid Enlargement, Masses Respiratory: Symmetrical Chest Expansion and Respiratory Effort, Clear to Auscultation, Clear to Percussion Cardiovascular: NL Sounds; No Murmurs; No JVD, RRR, No Edema, - Extremities: No Edema, No Clubbing, Cyanosis, - Skin: No Rash or Ulcers, No Nodules or Sclerosis, - Neurological: NL Sensation, - - Cooperative, follows simple commands. No tremor. Poor verbal skills. Result Diagrams: 07/25/16 05:41 07/21/16 05:27 Microbiology and Other Data: Microbiology 07/18/16 22:07 Aerobic Blood Culture - Preliminary Blood Venous No Growth Day 3 Anaerobic Blood Culture - Preliminary No Growth Day 3 Blood Culture - Final 07/18/16 19:58 Aerobic Blood Culture - Preliminary Blood Venous No Growth Day 3 Anaerobic Blood Culture - Preliminary No Growth Day 3 Blood Culture - Final 07/18/16 22:00 Legionella Urinary Antigen - Final Urine Negative Legionella Streptococcus pneumoniae Ag Screen - Final Positive S. Pneumo Antigen 07/18/16 18:00 Influenza Types A,B Antigen (LORI) - Final Nasal Specimen received for Influenza A/B Molecular testing Assess/Plan/Problems-Billing Assessment: Mr. Keenan is a 61yo M with PMH of Down syndrome, intellectual disability, depression, mild hearing loss, BPH, recent diagnosis of Influenza, who presented to ED with weakness, falls, found to have pneumonia. - Patient Problems (1) Influenza B Current Visit: Yes Status: Acute Code(s): J10.1 - FLU DUE TO OTH IDENT INFLUENZA VIRUS W OTH RESP MANIFEST SNOMED Code(s): 92830951 Comment: - As per aide, he finished treatment last week, but still testing positive. - d/w ID - this may represent only virus since this is a PCR test, but as patient lives at [facility] with other residents. Last dose oseltamivir PM 07/23. (2) Pneumococcal pneumonia Current Visit: Yes Status: Acute Code(s): J13 - PNEUMONIA DUE TO STREPTOCOCCUS PNEUMONIAE SNOMED Code(s): 344919551 Comment: - Pneumococcal Ag positive. - Continue Ceftriaxone and Zithromax, latter po with last dose 07/24. (3) Down syndrome Current Visit: Yes Status: Acute Code(s): Q90.9 - DOWN SYNDROME, UNSPECIFIED SNOMED Code(s): 28248555 Comment: Severe developmental delay. He needs more PT before discharge as he needs to climb 10 stairs to go home. Status and Disposition: Inpatient.
[2016-07-25] MEDS ORDERED: ceFUROXime TAB(*) 250 MG PO ONE (09:38)
--- NOTE | 2016-07-25 09:38 | PN ---
Progress Note - Progress Note Note: Time spent on discharge 45 minutes.
[2016-07-25] MEDS: Fluticasone NASAL SPRAY 50MCG* 16 gm SPRAY BTL BOTH NARES SCH (10:44)
[2016-07-25] MEDS: Tamsulosin CAP* 0.4 MG PO SCH (10:45)
[2016-07-25] MEDS: Prenatal Vitamin TAB PO SCH (10:45)
[2016-07-25] MEDS: Potassium Chlor TAB* 20 MEQ TAB.ER PO SCH (10:45)
--- NOTE | 2016-07-26 01:33 | DS ---
DISCHARGE SUMMARY: DATE OF ADMISSION: DATE OF DISCHARGE: 07/25/16 HOSPITAL COURSE: This 61-year-old man presented with a chief complaint of he is falling a lot. The patient is a very poor historian due to intellectual disability. He is a resident of [facility]. He was diagnosed with influenza as an outpatient the week before. He completed a course of treatment, but continued to have dyspnea and cough. I note he has a history of Down syndrome as well as intellectual disability, hearing loss, depression, and BPH. Chest x-ray showed small bilateral infiltrates. The patient was given a full course of oseltamivir. He was also given a full course of azithromycin. He was given ceftriaxone during his hospital stay and will continue with cefuroxime as an out-patient for 4 more days. He did receive an oral dose of cefuroxime on the morning of discharge. His condition was good. He is appropriate to return to his level of care as before. He should resume all his usual medications including p.r.n. DISCHARGE DIAGNOSES: 1. Pneumonia. 2. History of influenza B. 3. Down syndrome with intellectual disability. DISCHARGE MEDICATIONS: 1. Cefuroxime 500 mg b.i.d. for 4 days. 2. Tamsulosin 0.4 mg daily. 3. Meloxicam 7.5 mg daily. 4. Albuterol sulfate 2 puffs every 4 hours p.r.n. 5. Pepto-Bismol max strength 15 mL every 4 hours p.r.n. 6. Guaifenesin DM 10 mL 4 times a day p.r.n. 7. Acetaminophen 650 mg every 4 hours p.r.n. 8. Ibuprofen 400 mg every 8 hours p.r.n. 9. PreviDent 5000 plus twice daily. 10. Fluticasone nasal spray 2 sprays each nostril daily. 11. Multivitamin 1 daily. 12. Loratadine 10 mg daily. 13. Natural Dentist Healthy 10 mL swish and spit daily. [id number]/[facility] #: [id number] MTDD
== END 2016-07-25 12:00 | disposition home or self-care (01) | DRG 194 ==
LOC: ED 09:15 → MED 13:43
PROVIDERS: ADMIT Internal Medicine; ATTEND Internal Medicine
DX: J10.1 Influenza due to other identified influenza virus with other respiratory manifestations (principal); F72 Severe intellectual disabilities; J13 Pneumonia due to Streptococcus pneumoniae; H91.90 Unspecified hearing loss, unspecified ear; N40.0 Benign prostatic hyperplasia without lower urinary tract symptoms; Q90.9 Down syndrome, unspecified; F32.9 Major depressive disorder, single episode, unspecified
CPT/HCPCS: 36415; 70450; 71010; 72125; 74177; 80048; 80053; 81003; 82550; 82553; 83605; 83690; 83735; 84443; 84484; 85025; 86140; 87040; 87502; 87899; 93005; 97530; A9270-GY; J0456; J0696; J1644; Q9967

== ENCOUNTER 2019-04-12 17:23 | Inpatient (IN) | payer MEDICARE, BC, MEDICAID ==
[2019-04-12] MEDS ORDERED: NS 0.9% 1000 ML** 1,000 ML IV ONE ×2 (17:41→19:40)
[2019-04-12] MEDS ORDERED: Albuterol/Ipratropium NEB.SOL* Albuterol 2.5 MG/Ipratropium 0.5 MG 3 ML INH ONE (18:04)
--- NOTE | 2019-04-12 18:04 | ED ---
Shortness of Breath - HPI Summary HPI Summary: This patient is a 63 year old male presenting to [facility] with a chief complaint of SOB. The patient has a hx of Down's Syndrome. He has had a productive cough over the last several days. - History of Current Complaint Chief Complaint: EDRespiratoryDistress Time Seen by Provider: 04/12/19 17:34 Hx Obtained From: Patient Onset/Duration: Lasting Days Associated Signs & Symptoms: Cough (Productive) - Allergy/Home Medications Allergies/Adverse Reactions: Allergies Allergy/AdvReac Type Severity Reaction Status Date / Time No Known Allergies Allergy Unknown Verified 04/12/19 23:24 Reaction Details environmental Allergy Eyes Uncoded 05/15/15 12:23 Itchy/Swollen/Red/Watery Home Medications: Home Medications Neomycin/Bacitracin/Polymyxinb [Triple Antibiotic Ointment Pkt] 1 each TOPICAL BID PRN 04/12/19 [History Confirmed 04/12/19] Pediatric Multivitamin No.136 [Children Multivitamin] 1 tab.chew PO DAILY [History Confirmed 04/12/19] PMH/Surg Hx/FS Hx/Imm Hx Endocrine/Hematology History: Denies: Hx Diabetes, Hx Thyroid Disease Cardiovascular History: Denies: Hx Hypertension Respiratory History: Denies: Hx Asthma, Hx Chronic Obstructive Pulmonary Disease (COPD) GI History: Denies: Hx Ulcer Sensory History: Denies: Hx Contacts or Glasses, Hx Hearing Aid Opthamlomology History: Denies: Hx Contacts or Glasses Psychiatric History: Reports: Hx Depression Infectious Disease History: No Infectious Disease History: Denies: Hx Hepatitis, Hx Human Immunodeficiency Virus (HIV), Traveled Outside the [place] in Last 30 Days - Family History Known Family History: Positive: Unknown - The patient is a poor historian due to down syndrome - Social History Alcohol Use: None Substance Use Type: Reports: None Smoking Status (MU): Never Smoked Tobacco - Additional Comments History Additional Comments: Patient presents with health care provider stating the [place] wasn't feeling well with symptoms of URI, seen by his PCP and subsequently referred to the ED for further evaluation. Patient with history of Down syndrome, prior pneumonia per healthcare provider, no report of any significant aspiration risk. At this time no other medical information is available. Patient complaining of SOB and nonproductive cough. Review of Systems Negative: Fever Positive: Shortness Of Breath, Cough All Other Systems Reviewed And Are Negative: Yes Physical Exam - Summary Physical Exam Summary: Constitutional: Well-developed, Well-nourished, Alert. (-) Distressed Skin: Warm, Dry HENT: Normocephalic; Atraumatic Eyes: Conjunctiva normal Neck: Musculoskeletal ROM normal neck. (-) JVD, (-) Stridor, (-) Tracheal deviation Cardio: Rhythm regular, rate normal, Heart sounds normal; Intact distal pulses; The pedal pulses are 2+ and symmetric. Radial pulses are 2+ and symmetric. (-) Murmur Pulmonary/Chest wall: Effort normal. (-) Respiratory distress, (-) Wheezes, (-) Rales Abd: Soft, (-) tenderness, (-) Distension, (-) Guarding, (-) Rebound Musculoskeletal: (-) Edema Lymph: (-) Cervical adenopathy Neuro: Alert, Oriented x3 Psych: Mood and affect Normal Triage Information Reviewed: Yes Vital Signs On Initial Exam: Initial Vitals Temp Pulse Resp BP Pulse Ox 98.9 F 94 26 101/61 95 04/12/19 17:32 04/12/19 17:32 04/12/19 17:32 04/12/19 17:32 04/12/19 17:32 Vital Signs Reviewed: Yes Procedures - Sedation Patient Received Moderate/Deep Sedation with Procedure: No - Intubation Time of Intubation: 20:47 - Assisted by Dr. Long Intubation Method: orotracheal Tube Size (cm): 8.0 Medications: Succinylcholine Intubation Complications: no complications Diagnostics - Vital Signs Vital Signs Temp Pulse Resp BP Pulse Ox 04/12/19 17:32 98.9 F 94 26 101/61 95 - Laboratory Result Diagrams: 04/13/19 00:10 04/13/19 00:10 Lab Statement: Any lab studies that have been ordered have been reviewed, and results considered in the medical decision making process. - Radiology CXR Radiology Interpretation Completed By: ED Physician Summary of Radiographic Findings: Multifocal pneumonia. Pending official radiologist report. - CT Chest CT Interpretation Completed By: Radiologist Summary of CT Findings: Multilobar airspace disease as above with bilateral lower lobe consolidations which could represent pneumonia and/or aspiration pneumonitis. ED provider has reviewed this report. - EKG 2013 Cardiac Rate: Tachycardia - 149 BPM EKG Rhythm: Atrial Fibrillation Summary of EKG Findings: AVIB with RVR. No STEMI. Dr. Mark has reviewed and interpreted this EKG. Course/Dx - Course Course Of Treatment: This patient is a 63 year old male presenting to [facility] with a chief complaint of SOB. CXR revealed multifocal pneumonia. Labs revealed WBC 3.1 L, RBC 3.34 L, Hgb 11.5 L, Hct 33L, MCV 100 H, MCH 35 H, Plt Count 122 L , Absolute Lymphs 0.2 L, INR 1.32 H. Patient went into AFIB with RVR once returning from CT, confirmed with EKG. CT chest reveals Multilobar airspace disease as above with bilateral lower lobe consolidations which could represent pneumonia and/or aspiration pneumonitis. Dr. Long, Hospitalist, accepted the patient for admission. This plan was discussed with the patient and he was agreeable with this plan. - Diagnoses Provider Diagnoses: Aspiration pneumonia, Atrial fibrillation with RVR, Acute renal failure Discharge ED - Sign-Out/Discharge Documenting (check all that apply): Patient Departure - Admission - Discharge Plan Condition: Stable Disposition: ADMITTED TO [facility] - Billing Disposition and Condition Condition: STABLE Disposition: Admitted to [facility] - Attestation Statements Document Initiated by Amber: Yes Documenting Scribe: Juan Hinojosa Provider For Whom Ambre is Documenting (Include Credential): Rodri Mark DO Scribabi Attestation: Juan Goldstein scribed for Rodri Mark DO on 04/13/19 at 1005. Status of Scribe Document: Viewed
[2019-04-12] MEDS ORDERED: cefTRIAXone(*) 1 GM in NS 0.9% 50 ML* 50 ML IVPB ONE (18:32)
[2019-04-12] MEDS ORDERED: metroNIDAZOLE IV 500 MG/100ML* 500 MG/100 ML BAG IVPB ONE (18:53)
[2019-04-12 19:16] LABS: Hematocrit 33 % (42-52); Hemoglobin 11.5 g/dL (14.0-18.0); Mean Corpuscular HGB Conc 35 g/dL (31-36); Mean Corpuscular Hemoglobin 35 pg (27-31); Mean Corpuscular Volume 100 fL (80-94); Mean Platelet Volume 8.4 fL (7.4-10.4); Platelet Count 122 10^3/uL (150-450); Red Blood Count 3.34 10^6 /uL (4.18-5.48); Red Cell Distribution Width 15 % (10-15); White Blood Count 3.1 10^3/uL (3.5-10.8)
[2019-04-12 19:20] LABS: ABS Lymphocytes 0.2 10^3/ul (1.0-4.8); ABS Monocytes 0.1 10^3/ul (0-0.8); ABS Neutrophils 2.8 10^3/ul (1.5-7.7); Eosinophil % 0.2 %; Lymphocyte % 5.9 %; Nucleated Red Blood Cells % 0.2
[2019-04-12 19:30] LABS: Activated Partial Thrombo Time 32.6 seconds (26.0-38.0); INR 1.32 (0.82-1.09)
[2019-04-12 19:32] LABS: ALT 26 U/L (7-52); AST 29 U/L (13-39); Albumin 2.8 g/dL (3.2-5.2); Albumin/Globulin Ratio 0.8 (1-3); Alkaline Phosphatase 43 U/L (34-104); Anion Gap 10 mmol/L (2-11); BUN/Creatinine Ratio 21.4 (8-20); Blood Urea Nitrogen 72 mg/dL (6-24); CO2 Carbon Dioxide 22 mmol/L (22-32); Chloride 109 mmol/L (101-111); EGFR African American 22.7 (>60); EGFR Non-African American 18.8 (>60); Globulin 3.4 g/dL (2-4); Glucose 94 mg/dL (70-100); Potassium 3.6 mmol/L (3.5-5.0); Sodium 141 mmol/L (135-145); Total Protein 6.2 g/dL (6.4-8.9)
[2019-04-12 19:35] LABS: Troponin I 0.04 ng/mL (<0.03)
[2019-04-12 19:58] LABS: Polychromasia 1+
[2019-04-12] MEDS ORDERED: Diltiazem IV BAG* D5W Premix 125 MG/125 ML BAG IV ONE (20:21)
[2019-04-12 20:37] LABS: Influenza A Molecular NEGATIVE (Negative); Influenza B Molecular NEGATIVE (Negative)
[2019-04-12] MEDS ORDERED: Succinylcholine* 20 MG/ML 10 ML VIAL ONE (20:41)
[2019-04-12] MEDS ORDERED: Midazolam* 1 MG/ML 10 ML VIAL (10 MG) ONE (20:41)
[2019-04-12] MEDS ORDERED: Etomidate* 2 MG/ML 20 ML VIAL (40 MG) ONE (20:41)
[2019-04-12] MEDS ORDERED: Propofol* 100 ML ONE (20:56)
[2019-04-12] MEDS ORDERED: Propofol* 100 ML IV SCH (21:00)
[2019-04-12] MEDS ORDERED: fentaNYL* 50 MCG/ML 2 ML VIAL (100 MCG VIAL) IV SLOW PU PRN (21:17)
[2019-04-12] MEDS ORDERED: fentaNYL* 50 MCG/ML 2 ML VIAL (100 MCG VIAL) ONE (21:22)
[2019-04-12] MEDS ORDERED: Adenosine* 3 MG/ML VIAL ONE (21:32)
[2019-04-12] MEDS ORDERED: Calcium Gluconate INJ* 1 GM in NS 0.9% 50 ML* 50 ML IVPB ONE (21:49)
[2019-04-12] MEDS ORDERED: Amiodarone 150 MG IVPREMIX* 150 MG/100 ML BAG IV ONE (21:51)
[2019-04-12] MEDS ORDERED: Amiodarone IV VIAL** 50 MG/ML 3 ML (150 MG) VIAL ONE (21:55)
[2019-04-12] MEDS ORDERED: Amiodarone 360 MG IVPREMIX* 360 MG/200 ML BAG IV ONE ×2 (21:55→22:01)
[2019-04-12 22:15] LABS: Magnesium 1.4 mg/dL (1.9-2.7)
[2019-04-12 22:26] LABS: Troponin I 0.04 ng/mL (<0.03)
[2019-04-12] MEDS ORDERED: Magnesium Sulfate 2 GM IV* 2 GM/50 ML BAG IVPB ONE (22:26)
[2019-04-12] MEDS ORDERED: NS 0.9% 1000 ML** 1,000 ML IV SCH (22:30)
[2019-04-12] MEDS ORDERED: Phenylephrine 10 MG/ML VIAL* 1 ML VIAL ONE (22:45)
[2019-04-12] MEDS ORDERED: Phenylephrine 10 MG/ML VIAL* 50 MG in NS 0.9% 250 ML* 245 ML IV SCH (23:00)
[2019-04-12] MEDS ORDERED: Pantoprazole IV* 40 MG IV SCH (23:00)
[2019-04-12] MEDS ORDERED: Digoxin IV* 0.5 MG/2 ML AMP (0.25 MG/ML) ONE (23:15)
[2019-04-12] MEDS ORDERED: Digoxin IV* 0.5 MG/2 ML AMP (0.25 MG/ML) IV SLOW PU ONE (23:16)
[2019-04-12] MEDS ORDERED: Piperacillin/Tazobac ADVAN(*) 3.375 GM in NS 0.9% 100 ML* 100 ML IVPB ONE (23:20)
[2019-04-12] MEDS ORDERED: Vancomycin per Pharmacy* NOTE FOLLOW UP SCH (23:45)
[2019-04-12] MEDS ORDERED: Dexmedetomidine* 1,000 MCG in NS 0.9% 250 ML* 240 ML IV SCH (23:45)
[2019-04-12] MEDS ORDERED: Zosyn per Pharmacy* NOTE FOLLOW UP SCH (23:45)
[2019-04-12] MEDS ORDERED: Norepinephrine 16MCG/ML IVPRE* 4,000 MCG/250 ML BAG IV ONE (23:55)
[2019-04-13] MEDS ORDERED: Vancomycin(*) 1,250 MG in NS 0.9% 250 ML* 250 ML IVPB ONE ×2
[2019-04-13 00:20] LABS: Hematocrit 32 % (42-52); Hemoglobin 10.9 g/dL (14.0-18.0); Mean Corpuscular HGB Conc 34 g/dL (31-36); Mean Corpuscular Hemoglobin 35 pg (27-31); Mean Corpuscular Volume 103 fL (80-94); Mean Platelet Volume 9.1 fL (7.4-10.4); Platelet Count 108 10^3/uL (150-450); Red Blood Count 3.14 10^6 /uL (4.18-5.48); Red Cell Distribution Width 16 % (10-15); White Blood Count 2.4 10^3/uL (3.5-10.8)
[2019-04-13 00:55] LABS: Potassium 3.7 mmol/L (3.5-5.0)
[2019-04-13 01:00] LABS: BUN/Creatinine Ratio 21.8 (8-20); EGFR African American 24.3 (>60); EGFR Non-African American 20.1 (>60)
[2019-04-13] MEDS ORDERED: Vasopressin* 100 UNITS in D5W 250 ML BAG* 245 ML IV SCH (01:00)
[2019-04-13] MEDS ORDERED: Hydrocortisone INJ* 100 MG/2 ML VIAL (in pyxis) IV SCH (01:00)
[2019-04-13] MEDS ORDERED: Norepinephrine 16MCG/ML IVPRE* 4,000 MCG/250 ML BAG IV ONE (01:29)
[2019-04-13 01:39] LABS: Polychromasia 1+
[2019-04-13 01:43] LABS: ABS Lymphocytes 0.3 10^3/ul (1.0-4.8); ABS Monocytes 0.1 10^3/ul (0-0.8); Eosinophil % 0.4 %; Lymphocyte % 11.4 %; Nucleated Red Blood Cells % 0.5
[2019-04-13] MEDS: Norepinephrine 16MCG/ML IVPRE* 4,000 MCG/250 ML BAG IV SCH ×2 (01:50→02:40)
[2019-04-13 02:28] VITALS: BP 89/54
--- NOTE | 2019-04-13 02:52 | ADMNOTE ---
Subjective Interval History: this is my H/P 63 yo male with hx of Down syndrome presenting with shortness of breath and productive cough. He just got back from a cruise to the [facility]. Pt not a good historian, but apparently, his first stop after the cruise was at his cousin's house Amy Argueta yesterday who noted his respiratory symptoms. She called his CM and asked her to make a sick visit appt with his PCP for him once he returns to [place]. he came back from [place] today and went straight to the doctor who sent him immediately to the ER. Pt was placed on 5L NC right away as soon as he got here. Imagings are showing multifocal PNA. Upon return from CT scan, he went into Afib with RVR with HR in 200-230s. At the same time he had audible thick secretions in his airways which RT tried to suction out with deep ENT suctioning. His saturations was in the 80s the whole time on 15 L facial mask. Pt intubated emergently. It was difficult getting him comfortable on the ventilator. We tried multiple sedations to stop him from bucking the vent. CXR post intubation showed good positioning of the ET tube but loss of lung volumes B/L likely from his secretions. His HR through all that time was 180s-200s. Aften fentanyl, versed and propofol, pt was more comfortable on the vent but his HR stayed elevated. Tried adenosine which he did not respond to. His pressure was low so we started amiodarone. HR dropped to 150's, pt transferred upstairs. He received digoxin and spontaneously converted about 20 min later. Family History: Unchanged from Admission Social History: Unchanged from Admission Past Medical History: Unchanged from Admission Review of Systems - Measurements Intake and Output: Intake and Output Last 24 Hours 04/10/19 04/11/19 04/12/19 04/13/19 06:59 06:59 06:59 06:59 Intake Total 1050 Output Total 120 Balance 930 Weight 135 lb Intake: IV Fluids 1050 Output: Adkins 120 - Review of Systems General Comments: not able to obtain due to patient's conditions Objective Active Medications: Fentanyl Citrate (Fentanyl*) 50 mcg IV SLOW PU Q1H PRN PRN Reason: PAIN - SEVERE Last Admin: 04/12/19 21:25 Dose: 50 mcg Hydrocortisone Sodium Succinate (Solu-Cortef*) 100 mg IV Q8H ZOIE Last Admin: 04/13/19 00:45 Dose: 100 mg Diltiazem/Dextrose (Cardizem Iv D5w Bag* Premix) 125 mg in 125 mls @ 5 mls/hr IV ED ONCE ONE; Protocol Stop: 04/13/19 21:20 Last Admin: 04/12/19 21:16 Dose: 5 mls/hr Propofol (Diprivan*) 100 mls @ 0 mls/hr IV .PER PROTOCOL ZOIE; Protocol Last Admin: 04/12/19 23:39 Dose: 9.3 mls/hr Amiodarone HCl (Nexterone 360 Mg/200 Ml Ivpremix*) 360 mg in 200 mls @ 33.333 mls/hr IV ED ONCE ONE Stop: 04/13/19 04:00 Last Admin: 04/12/19 22:23 Dose: 33.333 mls/hr Sodium Chloride (Ns 0.9% 1000 Ml) 1,000 mls @ 125 mls/hr IV Q8H ZOIE Last Admin: 04/12/19 23:41 Dose: 125 mls/hr Phenylephrine HCl 50 mg/ (Sodium Chloride) 250 mls @ 0 mls/hr IV .(Initial Rate ) ZOIE; Protocol Last Admin: 04/12/19 23:39 Dose: 4.5 mls/hr Dexmedetomidine HCl 1,000 mcg/ (Sodium Chloride) 250 mls @ 0 mls/hr IV .( Initial rate) ZOIE; Protocol Last Admin: 04/13/19 01:25 Dose: 3.1 mls/hr Piperacillin Sod/Tazobactam (Sod 3.375 gm/ Sodium Chloride) 100 mls @ 25 mls/ hr IVPB Q12H COUNT INCLUDES THE [facility] Vasopressin 100 units/ (Dextrose) 250 mls @ 6 mls/hr IV .(Initial Rate) ZOIE; Protocol Last Admin: 04/13/19 01:27 Dose: 6 mls/hr Norepinephrine Bitartrate (Levophed 16 Mcg/Ml Premix*) 4,000 mcg in 250 mls @ 0 mls/hr IV .PER PROTOCOL ZOIE; Protocol Last Admin: 04/13/19 01:50 Dose: 150 mls/hr Amiodarone HCl (Nexterone 360 Mg/200 Ml Ivpremix*) 360 mg in 200 mls @ 16.667 mls/hr IV .SEE PROTOCOL COUNT INCLUDES THE [facility] Stop: 04/13/19 22:00 Pantoprazole Sodium (Protonix Iv*) 40 mg IV DAILY COUNT INCLUDES THE [facility] Last Admin: 04/13/19 00:29 Dose: 40 mg Pharmacy Consult (Zosyn Per Pharmacy*) 1 note FOLLOW UP .ZOSYN PER PHARMACY COUNT INCLUDES THE [facility] Pharmacy Consult (Vancomycin Per Pharmacy*) 1 note FOLLOW UP .VANC PER PHARMACY COUNT INCLUDES THE [facility]; Protocol Vital Signs - 8 hr 04/12/19 04/12/19 04/12/19 19:00 19:04 19:33 Temperature Pulse Rate 83 78 86 Respiratory 29 26 28 Rate Blood Pressure 109/57 (mmHg) O2 Sat by Pulse 90 95 98 Oximetry 04/12/19 04/12/19 04/12/19 20:05 20:11 20:30 Temperature Pulse Rate 132 Respiratory 26 42 33 Rate Blood Pressure 111/48 115/66 (mmHg) O2 Sat by Pulse 84 Oximetry 04/12/19 04/12/19 04/12/19 20:40 20:46 20:54 Temperature Pulse Rate 114 143 176 Respiratory 23 Rate Blood Pressure 93/46 143/77 125/83 (mmHg) O2 Sat by Pulse 89 97 97 Oximetry 04/12/19 04/12/19 04/12/19 21:00 21:01 21:04 Temperature Pulse Rate 195 189 190 Respiratory Rate Blood Pressure 120/65 105/75 (mmHg) O2 Sat by Pulse 84 84 91 Oximetry 04/12/19 04/12/19 04/12/19 21:10 21:14 21:19 Temperature Pulse Rate 160 120 131 Respiratory Rate Blood Pressure 82/70 90/54 103/71 (mmHg) O2 Sat by Pulse 90 91 92 Oximetry 04/12/19 04/12/19 04/12/19 21:24 21:25 21:29 Temperature Pulse Rate 132 132 Respiratory 23 Rate Blood Pressure 89/52 71/46 (mmHg) O2 Sat by Pulse 93 94 Oximetry 04/12/19 04/12/19 04/12/19 21:34 21:40 21:45 Temperature Pulse Rate 122 154 131 Respiratory Rate Blood Pressure 76/46 86/54 82/49 (mmHg) O2 Sat by Pulse 94 90 92 Oximetry 04/12/19 04/12/19 04/12/19 21:50 21:54 22:00 Temperature Pulse Rate 132 134 139 Respiratory Rate Blood Pressure 68/50 79/48 73/49 (mmHg) O2 Sat by Pulse 89 90 90 Oximetry 04/12/19 04/12/19 04/12/19 22:01 22:04 22:10 Temperature Pulse Rate 141 135 144 Respiratory Rate Blood Pressure 79/47 72/57 (mmHg) O2 Sat by Pulse 92 91 90 Oximetry 04/12/19 04/12/19 04/12/19 22:15 22:20 22:23 Temperature Pulse Rate 128 124 109 Respiratory Rate Blood Pressure 74/41 61/37 72/41 (mmHg) O2 Sat by Pulse 86 88 89 Oximetry 04/12/19 04/12/19 04/12/19 22:25 22:39 23:00 Temperature 38.2 F Pulse Rate 114 117 130 Respiratory 22 Rate Blood Pressure 60/45 84/66 (mmHg) O2 Sat by Pulse 89 91 97 Oximetry 04/12/19 04/12/19 04/12/19 23:10 23:15 23:21 Temperature 100.4 F Pulse Rate 133 132 133 Respiratory Rate Blood Pressure 95/59 91/60 77/60 (mmHg) O2 Sat by Pulse 98 99 93 Oximetry 04/12/19 04/12/19 04/12/19 23:22 23:25 23:30 Temperature 100.6 F 100.6 F Pulse Rate 130 129 130 Respiratory Rate Blood Pressure 81/55 90/59 (mmHg) O2 Sat by Pulse 94 96 Oximetry 04/12/19 04/12/19 04/12/19 23:35 23:40 23:45 Temperature 100.6 F 100.8 F 100.8 F Pulse Rate 132 131 69 Respiratory Rate Blood Pressure 68/53 62/43 61/40 (mmHg) O2 Sat by Pulse 97 97 95 Oximetry 04/12/19 04/12/19 04/12/19 23:50 23:52 23:55 Temperature 100.8 F 100.8 F 100.8 F Pulse Rate 68 68 67 Respiratory Rate Blood Pressure 56/38 59/38 63/39 (mmHg) O2 Sat by Pulse 92 95 95 Oximetry 04/13/19 04/13/19 04/13/19 00:00 00:05 00:10 Temperature 100.9 F 100.9 F 100.9 F Pulse Rate 67 66 65 Respiratory 23 Rate Blood Pressure 67/41 65/45 75/48 (mmHg) O2 Sat by Pulse 96 98 97 Oximetry 04/13/19 04/13/19 04/13/19 00:15 00:20 00:25 Temperature 100.8 F 100.8 F 100.8 F Pulse Rate 65 65 71 Respiratory Rate Blood Pressure 80/47 84/49 84/61 (mmHg) O2 Sat by Pulse 96 96 95 Oximetry 04/13/19 04/13/19 04/13/19 00:30 00:35 00:40 Temperature 100.6 F 100.6 F 100.6 F Pulse Rate 68 66 66 Respiratory Rate Blood Pressure 80/43 91/58 92/55 (mmHg) O2 Sat by Pulse 96 97 96 Oximetry 04/13/19 04/13/19 04/13/19 00:45 00:50 00:55 Temperature 100.4 F 100.4 F 100.4 F Pulse Rate 66 67 66 Respiratory Rate Blood Pressure 94/53 91/56 94/51 (mmHg) O2 Sat by Pulse 96 96 96 Oximetry 04/13/19 04/13/19 04/13/19 01:00 01:05 01:10 Temperature 100.2 F 100.2 F 100.2 F Pulse Rate 66 65 65 Respiratory 22 Rate Blood Pressure 92/54 90/55 84/54 (mmHg) O2 Sat by Pulse 95 95 95 Oximetry 04/13/19 04/13/19 04/13/19 01:13 01:15 01:20 Temperature 0 F 100.2 F 100.2 F Pulse Rate 0 65 63 Respiratory 0 Rate Blood Pressure 0/0 92/52 94/55 (mmHg) O2 Sat by Pulse 94 93 93 Oximetry 04/13/19 04/13/19 04/13/19 01:25 01:30 01:35 Temperature 100.0 F 100.0 F 100.0 F Pulse Rate 63 64 63 Respiratory Rate Blood Pressure 87/51 81/50 84/52 (mmHg) O2 Sat by Pulse 92 90 91 Oximetry 04/13/19 04/13/19 04/13/19 01:40 01:45 01:50 Temperature 100.2 F 100.0 F 100.0 F Pulse Rate 62 63 62 Respiratory Rate Blood Pressure 88/52 85/55 89/54 (mmHg) O2 Sat by Pulse 91 91 91 Oximetry 04/13/19 04/13/19 04/13/19 01:55 02:00 02:05 Temperature 100.0 F 100.0 F 100.0 F Pulse Rate 62 63 63 Respiratory 17 Rate Blood Pressure 90/49 92/56 92/55 (mmHg) O2 Sat by Pulse 91 91 90 Oximetry 04/13/19 04/13/19 04/13/19 02:10 02:15 02:20 Temperature 100.0 F 100.0 F 99.9 F Pulse Rate 63 63 63 Respiratory Rate Blood Pressure 87/56 83/57 86/49 (mmHg) O2 Sat by Pulse 90 90 90 Oximetry 04/13/19 02:25 Temperature 99.9 F Pulse Rate 62 Respiratory Rate Blood Pressure 89/54 (mmHg) O2 Sat by Pulse 90 Oximetry Oxygen Devices in Use Now: Endotracheal Tube, Mechanical Ventilator Appearance: sickly, intubated Eyes: No Scleral Icterus, PERRLA Ears/Nose/Mouth/Throat: Mucous Membranes Moist Neck: NL Appearance and Movements; NL JVP Respiratory: - - diffuse crackles Abdominal: NL Sounds; No Tenderness; No Distention, No Hepatosplenomegaly Lymphatic: No Cervical Adenopathy Extremities: No Edema, No Clubbing, Cyanosis Skin: No Rash or Ulcers, No Nodules or Sclerosis Neurological: - - intubated, sedated Result Diagrams: 04/13/19 00:10 04/13/19 00:10 Microbiology and Other Data: Microbiology 04/13/19 00:00 Nasal Screen MRSA (PCR) - Final Nasal Mrsa Not Detected Assess/Plan/Problems-Billing Assessment: - Patient Problems (1) Septic shock Current Visit: Yes Status: Acute Code(s): A41.9 - SEPSIS, UNSPECIFIED ORGANISM; R65.21 - SEVERE SEPSIS WITH SEPTIC SHOCK SNOMED Code(s): 46954168 Comment: sec to multifocal PNA. With multiorgan failure now Blood cultures, sputum cultures on vanc and zosyn pressors, vasoppresin, solucortef 100 Q8H, IVF (2) Acute respiratory failure with hypoxemia Current Visit: Yes Status: Acute Code(s): J96.01 - ACUTE RESPIRATORY FAILURE WITH HYPOXIA SNOMED Code(s): 301748440 Comment: multifocal PNA, ARDS also with copious amount of secretions with collapsed airways. Needs APRV to pop open the lungs but his pressure is low and he is now on 3 pressors. Frequent suctioning, doing ARDSnet now sputum cx, blood cx vanc and zosyn repeat CXR in am (3) Multifocal pneumonia Current Visit: Yes Status: Acute Code(s): J18.9 - PNEUMONIA, UNSPECIFIED ORGANISM SNOMED Code(s): 903827454 (4) Atrial fibrillation with RVR Current Visit: Yes Status: Acute Code(s): I48.91 - UNSPECIFIED ATRIAL FIBRILLATION SNOMED Code(s): 763959590311107 Comment: was up to 230s in the ED this is from sepsis and respiratory failure, converted tiarra while on amio drip s/p 0.5 dig (5) DVT prophylaxis Current Visit: No Status: Acute Code(s): AZT8130 - SNOMED Code(s): 731100811 Comment: - SQ heparin. (6) Full code status Current Visit: No Status: Acute Code(s): Z78.9 - OTHER SPECIFIED HEALTH STATUS SNOMED Code(s): 625953282 (7) Acute renal failure Current Visit: Yes Status: Acute
[2019-04-13] MEDS ORDERED: Sodium Bicarbonate 8.4%* 50 ML SYRINGE ONE ×2 (03:10→03:16)
[2019-04-13] MEDS ORDERED: EPINEPHrine SYR 0.1MG/ML* SYRINGE ONE (03:10)
[2019-04-13] MEDS ORDERED: Lidocaine 2% (CARDIAC)* 20 MG/ML 5 ML SYRINGE (100 MG) ONE ×2 (03:10→03:36)
[2019-04-13] MEDS ORDERED: Amiodarone IV VIAL** 50 MG/ML 3 ML (150 MG) VIAL ONE (03:10)
[2019-04-13] MEDS ORDERED: Magnesium Sulfate IV* 0.5 GM/ML 2 ML VIAL (1 GM) ONE (03:10)
[2019-04-13] MEDS ORDERED: Magnesium Sulfate 2 GM IV* 2 GM/50 ML BAG ONE (03:25)
[2019-04-13] MEDS ORDERED: ZOSYN 3.375 GM Q12H per EXTENDED INFUSION IVPB SCH ×2 (03:30)
[2019-04-13] MEDS ORDERED: Amiodarone 360 MG IVPREMIX* 360 MG/200 ML BAG IV SCH (04:01)
--- NOTE | 2019-04-13 04:09 | PN ---
Hospitalist Progress Note Code blue called. Initial rhythm was Torsades. Total of 4g of Mag given during the code. 2 gram prior to the code. Patient shocked multiple times. ROSC achieved multiple times but saturations were low which wasnt surprising as he was in severe ARDS on high vent support prior to the code. After 35 minutes, this was futile. He cant maintain any rhythm with saturations in the 40s without any ways to bring . Pt got his last ROSC, soledad'ed down and went in asystole. Time of 03:45 am. Next of kin informed. No autopsy. Discussed case with ME who will not take on the case.
--- NOTE | 2019-04-13 04:18 | DCNOTE ---
Subjective Interval History: summary 63 yo male with Down syndrome admitted with septic shock and acute hypoxemic respiratory failure secondary to multifocal pneumonia. Despite aggressive fluid resuscitation, multiple pressor supports on board, he went into multiorgan failure. He was in severe ARDS with 3 pressors right before coding. Aneudy jacobsen was called for torsades. Code lasted around 35 min before I deemed the resuscitation futile. He achieve rosc multiple times but his saturations were low due to severe ARDS and he could not maintain a pulse from that. Time of 0345 am. I called and informed the family. No autopsy. [place] [facility] [place] History: Unchanged from Admission Social History: Unchanged from Admission Past Medical History: Unchanged from Admission Objective Active Medications: Fentanyl Citrate (Fentanyl*) 50 mcg IV SLOW PU Q1H PRN PRN Reason: PAIN - SEVERE Last Admin: 04/12/19 21:25 Dose: 50 mcg Hydrocortisone Sodium Succinate (Solu-Cortef*) 100 mg IV Q8H [facility] Last Admin: 04/13/19 00:45 Dose: 100 mg Diltiazem/Dextrose (Cardizem Iv D5w Bag* Premix) 125 mg in 125 mls @ 5 mls/hr IV ED ONCE ONE; Protocol Stop: 04/13/19 21:20 Last Admin: 04/12/19 21:16 Dose: 5 mls/hr Propofol (Diprivan*) 100 mls @ 0 mls/hr IV .PER PROTOCOL [facility]OIE; Protocol Last Admin: 04/12/19 23:39 Dose: 9.3 mls/hr Sodium Chloride (Ns 0.9% 1000 Ml) 1,000 mls @ 125 mls/hr IV Q8H [facility]OIE Last Admin: 04/12/19 23:41 Dose: 125 mls/hr Phenylephrine HCl 50 mg/ (Sodium Chloride) 250 mls @ 0 mls/hr IV .(Initial Rate ) ZOIE; Protocol Last Admin: 04/12/19 23:39 Dose: 4.5 mls/hr Dexmedetomidine HCl 1,000 mcg/ (Sodium Chloride) 250 mls @ 0 mls/hr IV .( Initial rate) ZOIE; Protocol Last Admin: 04/13/19 01:25 Dose: 3.1 mls/hr Piperacillin Sod/Tazobactam (Sod 3.375 gm/ Sodium Chloride) 100 mls @ 25 mls/ hr IVPB Q12H [facility] Vasopressin 100 units/ (Dextrose) 250 mls @ 6 mls/hr IV .(Initial Rate) [facility]; Protocol Last Admin: 04/13/19 01:27 Dose: 6 mls/hr Norepinephrine Bitartrate (Levophed 16 Mcg/Ml Premix*) 4,000 mcg in 250 mls @ 0 mls/hr IV .PER PROTOCOL ZOIE; Protocol Last Admin: 04/13/19 02:40 Dose: 150 mls/hr Amiodarone HCl (Nexterone 360 Mg/200 Ml Ivpremix*) 360 mg in 200 mls @ 16.667 mls/hr IV .SEE PROTOCOL [facility] Stop: 04/13/19 22:00 Pantoprazole Sodium (Protonix Iv*) 40 mg IV DAILY [facility] Last Admin: 04/13/19 00:29 Dose: 40 mg Pharmacy Consult (Zosyn Per Pharmacy*) 1 note FOLLOW UP .ZOSYN PER PHARMACY [facility] Pharmacy Consult (Vancomycin Per Pharmacy*) 1 note FOLLOW UP .VANC PER PHARMACY [facility]; Protocol Vital Signs - 8 hr 04/12/19 04/12/19 04/12/19 20:11 20:30 20:40 Temperature Pulse Rate 132 114 Respiratory 42 33 23 Rate Blood Pressure 111/48 115/66 93/46 (mmHg) O2 Sat by Pulse 84 89 Oximetry 04/12/19 04/12/19 04/12/19 20:46 20:54 21:00 Temperature Pulse Rate 143 176 195 Respiratory Rate Blood Pressure 143/77 125/83 120/65 (mmHg) O2 Sat by Pulse 97 97 84 Oximetry 04/12/19 04/12/19 04/12/19 21:01 21:04 21:10 Temperature Pulse Rate 189 190 160 Respiratory Rate Blood Pressure 105/75 82/70 (mmHg) O2 Sat by Pulse 84 91 90 Oximetry 04/12/19 04/12/19 04/12/19 21:14 21:19 21:24 Temperature Pulse Rate 120 131 132 Respiratory Rate Blood Pressure 90/54 103/71 89/52 (mmHg) O2 Sat by Pulse 91 92 93 Oximetry 04/12/19 04/12/19 04/12/19 21:25 21:29 21:34 Temperature Pulse Rate 132 122 Respiratory 23 Rate Blood Pressure 71/46 76/46 (mmHg) O2 Sat by Pulse 94 94 Oximetry 12/04/12/19 04/12/19 21:40 21:45 21:50 Temperature Pulse Rate 154 131 132 Respiratory Rate Blood Pressure 86/54 82/49 68/50 (mmHg) O2 Sat by Pulse 90 92 89 Oximetry 04/12/19 04/12/19 04/12/19 21:54 22:00 22:01 Temperature Pulse Rate 134 139 141 Respiratory Rate Blood Pressure 79/48 73/49 (mmHg) O2 Sat by Pulse 90 90 92 Oximetry 04/12/19 04/12/19 04/12/19 22:04 22:10 22:15 Temperature Pulse Rate 135 144 128 Respiratory Rate Blood Pressure 79/47 72/57 74/41 (mmHg) O2 Sat by Pulse 91 90 86 Oximetry 04/12/19 04/12/19 04/12/19 22:20 22:23 22:25 Temperature Pulse Rate 124 109 114 Respiratory Rate Blood Pressure 61/37 72/41 60/45 (mmHg) O2 Sat by Pulse 88 89 89 Oximetry 04/12/19 04/12/19 04/12/19 22:39 23:00 23:10 Temperature 38.2 F Pulse Rate 117 130 133 Respiratory 22 Rate Blood Pressure 84/66 95/59 (mmHg) O2 Sat by Pulse 91 97 98 Oximetry 04/12/19 04/12/19 04/12/19 23:15 23:21 23:22 Temperature 100.4 F Pulse Rate 132 133 130 Respiratory Rate Blood Pressure 91/60 77/60 (mmHg) O2 Sat by Pulse 99 93 Oximetry 04/12/19 04/12/19 04/12/19 23:25 23:30 23:35 Temperature 100.6 F 100.6 F 100.6 F Pulse Rate 129 130 132 Respiratory Rate Blood Pressure 81/55 90/59 68/53 (mmHg) O2 Sat by Pulse 94 96 97 Oximetry 04/12/19 04/12/19 04/12/19 23:40 23:45 23:50 Temperature 100.8 F 100.8 F 100.8 F Pulse Rate 131 69 68 Respiratory Rate Blood Pressure 62/43 61/40 56/38 (mmHg) O2 Sat by Pulse 97 95 92 Oximetry 04/12/19 04/12/19 04/13/19 23:52 23:55 00:00 Temperature 100.8 F 100.8 F 100.9 F Pulse Rate 68 67 67 Respiratory 23 Rate Blood Pressure 59/38 63/39 67/41 (mmHg) O2 Sat by Pulse 95 95 96 Oximetry 04/13/19 04/13/19 04/13/19 00:05 00:10 00:15 Temperature 100.9 F 100.9 F 100.8 F Pulse Rate 66 65 65 Respiratory Rate Blood Pressure 65/45 75/48 80/47 (mmHg) O2 Sat by Pulse 98 97 96 Oximetry 04/13/19 04/13/19 04/13/19 00:20 00:25 00:30 Temperature 100.8 F 100.8 F 100.6 F Pulse Rate 65 71 68 Respiratory Rate Blood Pressure 84/49 84/61 80/43 (mmHg) O2 Sat by Pulse 96 95 96 Oximetry 04/13/19 04/13/19 04/13/19 00:35 00:40 00:45 Temperature 100.6 F 100.6 F 100.4 F Pulse Rate 66 66 66 Respiratory Rate Blood Pressure 91/58 92/55 94/53 (mmHg) O2 Sat by Pulse 97 96 96 Oximetry 04/13/19 04/13/19 04/13/19 00:50 00:55 01:00 Temperature 100.4 F 100.4 F 100.2 F Pulse Rate 67 66 66 Respiratory 22 Rate Blood Pressure 91/56 94/51 92/54 (mmHg) O2 Sat by Pulse 96 96 95 Oximetry 04/13/19 04/13/19 04/13/19 01:05 01:10 01:13 Temperature 100.2 F 100.2 F 0 F Pulse Rate 65 65 0 Respiratory 0 Rate Blood Pressure 90/55 84/54 0/0 (mmHg) O2 Sat by Pulse 95 95 94 Oximetry 04/13/19 04/13/19 04/13/19 01:15 01:20 01:25 Temperature 100.2 F 100.2 F 100.0 F Pulse Rate 65 63 63 Respiratory Rate Blood Pressure 92/52 94/55 87/51 (mmHg) O2 Sat by Pulse 93 93 92 Oximetry 04/13/19 04/13/19 04/13/19 01:30 01:35 01:40 Temperature 100.0 F 100.0 F 100.2 F Pulse Rate 64 63 62 Respiratory Rate Blood Pressure 81/50 84/52 88/52 (mmHg) O2 Sat by Pulse 90 91 91 Oximetry 12/04/13/19 04/13/19 01:45 01:50 01:55 Temperature 100.0 F 100.0 F 100.0 F Pulse Rate 63 62 62 Respiratory Rate Blood Pressure 85/55 89/54 90/49 (mmHg) O2 Sat by Pulse 91 91 91 Oximetry 04/13/19 04/13/19 04/13/19 02:00 02:05 02:10 Temperature 100.0 F 100.0 F 100.0 F Pulse Rate 63 63 63 Respiratory 17 Rate Blood Pressure 92/56 92/55 87/56 (mmHg) O2 Sat by Pulse 91 90 90 Oximetry 04/13/19 04/13/19 04/13/19 02:15 02:20 02:25 Temperature 100.0 F 99.9 F 99.9 F Pulse Rate 63 63 62 Respiratory Rate Blood Pressure 83/57 86/49 89/54 (mmHg) O2 Sat by Pulse 90 90 90 Oximetry Oxygen Devices in Use Now: Endotracheal Tube, Mechanical Ventilator Result Diagrams: 04/13/19 00:10 04/13/19 00:10 Microbiology and Other Data: Microbiology 04/13/19 00:00 Nasal Screen MRSA (PCR) - Final Nasal Mrsa Not Detected Assess/Plan/Problems-Billing Assessment: - Patient Problems (1) Septic shock Current Visit: Yes Status: Acute Code(s): A41.9 - SEPSIS, UNSPECIFIED ORGANISM; R65.21 - SEVERE SEPSIS WITH SEPTIC SHOCK SNOMED Code(s): 21995630 Comment: sec to multifocal PNA. With multiorgan failure now Blood cultures, sputum cultures on vanc and zosyn pressors, vasoppresin, solucortef 100 Q8H, IVF (2) Acute respiratory failure with hypoxemia Current Visit: Yes Status: Acute Code(s): J96.01 - ACUTE RESPIRATORY FAILURE WITH HYPOXIA SNOMED Code(s): 504431170 Comment: multifocal PNA, ARDS also with copious amount of secretions with collapsed airways. Needs APRV to pop open the lungs but his pressure is low and he is now on 3 pressors. Frequent suctioning, doing ARDSnet now sputum cx, blood cx vanc and zosyn repeat CXR in am (3) Multifocal pneumonia Current Visit: Yes Status: Acute Code(s): J18.9 - PNEUMONIA, UNSPECIFIED ORGANISM SNOMED Code(s): 508496691 (4) Atrial fibrillation with RVR Current Visit: Yes Status: Acute Code(s): I48.91 - UNSPECIFIED ATRIAL FIBRILLATION SNOMED Code(s): 484377512000263 Comment: was up to 230s in the ED this is from sepsis and respiratory failure, converted tiarra while on amio drip s/p 0.5 dig (5) DVT prophylaxis Current Visit: No Status: Acute Code(s): FCD0687 - SNOMED Code(s): 528916485 Comment: - SQ heparin. (6) Full code status Current Visit: No Status: Acute Code(s): Z78.9 - OTHER SPECIFIED HEALTH STATUS SNOMED Code(s): 391484335 (7) Acute renal failure Current Visit: Yes Status: Acute
== END 2019-04-13 03:45 | disposition expired | DRG 871 ==
LOC: ED 17:23 → ICU 22:23
PROVIDERS: ADMIT Student in an Organized Health Care Education/Training Program; ATTEND Student in an Organized Health Care Education/Training Program
PROC: 0BH17EZ Insertion of Endotracheal Airway into Trachea, Via Natural or Artificial Opening (ICD-10-PCS; principal; 2019-04-12)
PROC: 5A1935Z Respiratory Ventilation, Less than 24 Consecutive Hours (ICD-10-PCS; 2019-04-12)
PROC: 3E043XZ Introduction of Vasopressor into Central Vein, Percutaneous Approach (ICD-10-PCS; 2019-04-12)
DX: A41.9 Sepsis, unspecified organism (principal); R65.21 Severe sepsis with septic shock; J96.01 Acute respiratory failure with hypoxia; J18.9 Pneumonia, unspecified organism; J80 Acute respiratory distress syndrome; N17.9 Acute kidney failure, unspecified; I48.91 Unspecified atrial fibrillation; F32.9 Major depressive disorder, single episode, unspecified; R00.1 Bradycardia, unspecified; Q90.9 Down syndrome, unspecified
CPT/HCPCS: 36415; 36600; 71045; 71046; 71250; 74176; 80048; 80053; 82803; 83605; 83735; 83880; 84484; 85025; 85610; 85730; 87040; 87641; 93005; 99285; A9270-GY; J0153; J0171; J0282; J0330; J0610; J0696; J1160; J1720; J2250; J2543; J2704; J3010; J3370; J3475; J3490